=== PATIENT | female | born 1985 | race Caucasian/White ===

== ENCOUNTER → 2017-11-26 | Outpatient (CLI) | payer OTHER ==
--- NOTE | 2017-11-26 18:28 | Diagnostic Imaging Report ---
INDICATION: Indentation in the right breast at 6 o'clock areolar region and questionable discoloration. CORRELATION is made with diagnostic mammogram earlier the same day. FINDINGS: Sonographic interrogation of the area of concern in the 6 o'clock areolar location of the right breast was performed. No sonographic abnormality is seen. No solid or cystic mass is detected. IMPRESSION: BI-RADS category 1. No sonographic abnormality is detected. Clinical followup is recommended. ACR BI-RADS Category 1: Negative. Result letter will be mailed to the patient. Note: At least 10% of breast cancer is not imaged by mammography. Dictated by: Dictated on workstation # [id number]
--- NOTE | 2017-11-30 16:09 | Diagnostic Imaging Report ---
INDICATION: Color change and indentation of the right nipple for two weeks. COMPARISON: No prior mammograms are available for comparison. EXAMINATION: 2D and 3D bilateral diagnostic mammography was performed with CAD. FINDINGS: Both breasts are heterogeneously dense, limiting the sensitivity of mammography. No discrete mass or malignant appearing microcalcifications are seen. The axillae are unremarkable. IMPRESSION: BI-RADS 0 No mammographic features suspicious for malignancy. Even so, sonographic interrogation in the retroareolar right breast is recommended for further evaluation. Dictated by: Dictated on workstation # [id number]
== END ==
LOC: RAD 12:09
PROVIDERS: ATTEND Nurse Practitioner Family
DX: N64.4 Mastodynia (principal)
CPT/HCPCS: 77066

== ENCOUNTER 2018-02-15 14:35 | Emergency (ER) | payer SELFPAY ==
[~2018-02-15] VITALS: Ht 172.7 cm; Wt 63.5 kg
--- OUTSIDE RECORDS SUMMARY | 2018-02-15 14:39 | XMS REPORT | Referral Summary ---
Author Author [facility] Organization [facility] Address Unknown Phone Unavailable Care Team Providers Care Loans Officer Name Role Phone No PCP, Pt States PCP Encounter VC Date(s): 12/15/16 - 12/15/[address] [facility] [address] [place] [address] [place] Discharge Diagnosis: Torticollis Discharge Diagnosis: Strain of right trapezius muscle Discharge Disposition: 01-Home or Self Care Attending Physician: Otto Martinez MD Admitting Physician: Otto Martinez MD Vital Signs Most recent to 1 oldest [Reference Range]: Temperature Oral 36.5 degC [35.8-37.3 degC] (12/15/16 12:21 PM) Peripheral Pulse 80 bpm Rate [60-100 bpm] (12/15/16 3:52 PM) Respiratory Rate 18 br/min [14-20 br/min] (12/15/16 3:52 PM) Blood Pressure 153/104 mmHg [90-140/60-90 mmHg] *HI* (12/15/16 3:52 PM) SpO2 100 % (12/15/16 3:52 PM) Problem List Condition Effective Dates Status Health Status Informant No Chronic Problems Active Tobacco Active patient user(Confirmed) Allergies, Adverse Reactions, Alerts No Known Medication Allergies Medications albuterol CFC free 90 mcg/inh inhalation aerosol 2 puffs, Inhalation, QID, as needed for wheezing, # 1 Each, 0 Refill(s) Start Date: 12/27/15 Status: Ordered cyclobenzaprine 10 mg oral tablet 10 mg 1 tabs, Oral, TID, as needed for spasm, # 10 tabs, 0 Refill(s), supervising bailee Start Date: 03/19/16 Stop Date: 03/19/17 Status: Ordered cyclobenzaprine 10 mg oral tablet 10 mg 1 tabs, Oral, TID, as needed for spasm, X 5 days, # 15 tabs, 0 Refill(s) Start Date: 12/15/16 Stop Date: 12/20/16 Status: Ordered ibuprofen 800 mg oral tablet 800 mg 1 tabs, Oral, q8hr, as needed for pain, X 7 days, # 21 tabs, 0 Refill(s) Start Date: 12/15/16 Stop Date: 12/22/16 Status: Ordered Naprosyn 250 mg oral tablet 250 mg 1 tabs, Oral, BID, as needed for pain, # 20 tabs, 0 Refill(s) Start Date: 06/15/16 Status: Ordered naproxen 375 mg oral tablet 375 mg 1 tabs, Oral, BID, as needed for pain, # 20 tabs, 0 Refill(s) Start Date: 01/14/15 Status: Ordered [place] 5 mg-325 mg oral tablet 1 tabs, Oral, q6hr, as needed for pain, # 12 tabs, 0 Refill(s) Start Date: 03/19/16 Stop Date: 03/19/17 Status: Ordered [place] 5 mg-325 mg oral tablet 1 tabs, Oral, q6hr, as needed for pain, X 5 days, # 12 tabs, 0 Refill(s) Start Date: 12/15/16 Stop Date: 12/20/16 Status: Ordered promethazine 25 mg oral tablet 25 mg 1 tabs, Oral, q6hr, # 12 tabs, 0 Refill(s) Start Date: 06/15/16 Status: Ordered Results No data available for this section Immunizations No data available for this section Procedures No data available for this section Social History Social History Type Response Smoking Status Current every day smoker; Tobacco use per day: 1 Pack entered on: 04/07/16 Assessment and Plan No data available for this section
--- OUTSIDE RECORDS SUMMARY | 2018-02-15 14:39 | XMS REPORT | Referral Summary ---
Author Author [facility] Organization [facility] Address Unknown Phone Unavailable Care Team Providers Care Ways Operator Name Role Phone No PCP, Pt States PCP Encounter VC Date(s): 01/11/17 - 01/13/17 [facility] [address] [place] [address] Discharge Disposition: 01-Home or Self Care Attending Physician: Burke Real MD Admitting Physician: Burke Real MD Vital Signs Most recent to 1 oldest [Reference Range]: Temperature Oral 36.4 degC [35.8-37.3 degC] (01/13/17 12:00 PM) Peripheral Pulse 79 bpm Rate [60-100 bpm] (01/13/17 12:00 PM) Heart Rate Monitored 81 bpm [60-100 bpm] (01/11/17 2:30 PM) Respiratory Rate 15 br/min [14-20 br/min] (01/13/17 12:00 PM) Blood Pressure 133/85 mmHg [90-140/60-90 mmHg] (01/13/17 12:00 PM) Mean Arterial 88 mmHg Pressure, Cuff (01/11/17 2:30 PM) SpO2 100 % (01/13/17 12:00 PM) Remote Telemetry Ongoing (01/13/17 9:32 AM) Problem List Condition Effective Dates Status Health Status Informant Acute Active pain(Confirmed) At risk for Active falls(Confirmed)1 At risk of venous 01/13/17 Active thromboembolus(Confi rmed)2 1This problem was added by Discern Expert. 2Problem added by Discern Expert Allergies, Adverse Reactions, Alerts No Known Medication Allergies Medications cefdinir 300 mg oral capsule 300 mg 1 caps, Oral, q12hr, X 7 days, # 14 caps, 0 Refill(s), Pharmacy: [facility] #[id number], 1 caps Oral q12hr,x7 days Start Date: 01/13/17 Stop Date: 01/20/17 Status: Ordered Results Hematology Most recent to 1 oldest [Reference Range]: WBC [4.8-10.8 11.2 10*3/uL 10*3/uL] *HI* (01/13/17 5:17 AM) RBC [4.00-5.20] 3.63 *LOW* (01/13/17 5:17 AM) Hgb [12.0-16.0 11.1 gm/dL gm/dL] *LOW* (01/13/17 5:17 AM) Hct [37.0-47.0 %] 33.9 % *LOW* (01/13/17 5:17 AM) MCV [82.0-99.0 fL] 93.4 fL (01/13/17 5:17 AM) MCH [27.0-32.0 pg] 30.6 pg (01/13/17 5:17 AM) MCHC [32.0-36.0 32.7 gm/dL gm/dL] (01/13/17 5:17 AM) RDW [11.5-14.5 %] 12.1 % (01/13/17 5:17 AM) Platelet [150-400 270 10*3/uL 10*3/uL] (01/13/17 5:17 AM) MPV [9.4-12.4 fL] 10.2 fL (01/13/17 5:17 AM) Immature 0.2 % Granulocytes (01/13/17 5:17 AM) [0.0-1.0 %] Neutrophils [51-75 64 % %] (01/13/17 5:17 AM) Lymphocytes [20-46 21 % %] (01/13/17 5:17 AM) Monocytes [4-11 %] 12 % *HI* (01/13/17 5:17 AM) Eosinophils [0-4 %] 3 % (01/13/17 5:17 AM) Basophils [0-2 %] 0 % (01/13/17 5:17 AM) Neutro Absolute 7.14 [1.90-7.00] *HI* (01/13/17 5:17 AM) Lymph Absolute 2.33 [0.80-3.30] (01/13/17 5:17 AM) Saline Absolute 1.36 [0.30-1.00] *HI* (01/13/17:17 AM) Eos Absolute 0.34 [0.00-0.50] (01/13/17 5: AM) Baso Absolute 0.03 [0.00-0.20] (01/13/17: AM) Nucleated RBC 0.0 /100 WBC Automated [0 /100 (01/13/17: AM) WBC] Chemistry Most recent to 1 oldest [Reference Range]: Sodium Lvl [136-144 137 mEq/L mEq/L] (01/13/17: AM) Potassium Lvl 4.1 mEq/L [3.6-5.1 mEq/L] (01/13/17 5: AM) Chloride [99-109 104 mEq/L mEq/L] (01/13/17: AM) CO2 [22-32 mEq/L] 27 mEq/L (01/13/17: AM) AGAP [3-20 mEq/L] 6 mEq/L (01/13/17 5:16 AM) BUN [4-20 mg/dL] 5 mg/dL (01/13/17:16 AM) Glucose Lvl [70-100 97 mg/dL mg/dL] (01/13/17:16 AM) Creatinine Lvl 0.66 mg/dL [0.44-1.03 mg/dL] (01/13/17: AM) eGFR [>60 mL/min] >60 mL/min 1 (01/13/17:16 AM) Calcium Lvl 8.6 mg/dL [8.6-10.0 mg/dL] (01/13/17 5:16 AM) Albumin Lvl [3.5-4.8 2.9 gm/dL gm/dL] *LOW* (01/13/17 5:16 AM) Total Protein 5.7 gm/dL [6.1-7.9 gm/dL] *LOW* (01/12/17 6:53 AM) Globulin [1.9-4.3 2.8 gm/dL gm/dL] (01/12/17 6:53 AM) ALT [14-54 U/L] 13 U/L *LOW* (01/12/17 6:53 AM) AST [15-41 U/L] 15 U/L (01/12/17 6:53 AM) Alk Phos [26-104 74 U/L U/L] (01/12/17 6:53 AM) Bili Total [0.2-1.2 0.8 mg/dL 2 mg/dL] (01/12/17 6:53 AM) Magnesium Lvl 1.9 mg/dL [1.8-2.5 mg/dL] (01/13/17 5:16 AM) Phosphorus [2.4-4.7 3.7 mg/dL 3 mg/dL] (01/13/17 5:16 AM) Screen, Negative Urine NPT (01/11/17 11:37 AM) U Beta hCG Ql Negative (01/11/17 11:38 AM) Lactic Acid-POC 0.4 mEq/L [0.5-2.0 mEq/L] *LOW* (01/11/17 1:42 PM) HIV 1 and 2 Abs Negative (01/11/17 11:38 AM) 1Result Comment: Multiply eGFR results by 1.21 for race. 2Result Comment: Naproxen, specifically the metabolite O-desmethylnaproxen, may cause spurious elevation in Total Bilirubin levels. 3Result Comment: High dosages of liposomal Amphotericin B (AmBisome) therapy or other drug preparations that use a liposomal envelope to facilitate drug delivery may cause falsely elevated results for phosphorus. Urinalysis Most recent to 1 oldest [Reference Range]: UA Color Yellow (01/11/17 11:38 AM) UA Appear Cloudy *ABN* (01/11/17 11:38 AM) UA pH [5.0-8.0] 5.0 (01/11/17 11:38 AM) UA Leuk Est Pos 2+ [Negative] *ABN* (01/11/17 11:38 AM) UA Nitrite Positive [Negative] *ABN* (01/11/17 11:38 AM) UA Protein Pos 1+ [Negative] *ABN* (01/11/17 11:38 AM) UA Glucose Negative [Negative] (01/11/17 11:38 AM) UA Ketones Trace [Negative] *ABN* (01/11/17 11:38 AM) UA Urobilinogen Negative [<1.0] (01/11/17 11:38 AM) UA Bili [Negative] Negative (01/11/17 11:38 AM) UA Blood [Negative] Pos 2+ *ABN* (01/11/17 11:38 AM) UA Spec Grav 1.015 [1.003-1.030] (01/11/17 11:38 AM) Type Catheter (01/11/17 11:38 AM) UA WBC [0-4 /HPF] >50 /HPF *ABN* (01/11/17 11:38 AM) UA RBC [0-2] 10-20 *ABN* (01/11/17 11:38 AM) Epithelial Cells 0-2 (01/11/17 11:38 AM) UA Bacteria Moderate *ABN* (01/11/17 11:38 AM) UA Mucous Present (01/11/17 11:38 AM) Microbiology Reports TEST: Blood Culture STATUS: Order in Progress BODY SITE: SOURCE: Blood COLLECTED DATE/TIME: 01/12/17 7:49 PM Blood Culture No growth after 12 hours incubation. Nursing unit/client will be called if growth is detected. - TEST: Blood Culture STATUS: Order in Progress BODY SITE: SOURCE: Blood COLLECTED DATE/TIME: 01/12/17 7:36 PM Blood Culture No growth after 12 hours incubation. Nursing unit/client will be called if growth is detected. - TEST: Respiratory Virus Panel - PCR STATUS: Auth (Verified) BODY SITE: SOURCE: Nasopharyngeal Swab COLLECTED DATE/TIME: 01/11/17 5:35 PM Respiratory Virus Panel - PCR Negative for all strains tested. . Specimen tested for the following FDA approved viral targets: Influenza A, Influenza A subtype H1, Influenza A subtype H3, Influenza A 2009 H1N1, Influenza B, Respiratory Syncytial Virus subtype A, Respiratory Syncytial Virus subtype B, Adenovirus B/E, Adenovirus C, Rhinovirus, Parainfluenza virus 1, Parainfluenza virus 2, Parainfluenza virus 3, and Human Metapneumovirus. . The following viral targets were also tested. Although not FDA approved, these targets have been validated by our laboratory for clinical diagnosis: Parainfluenza virus 4, Coronavirus 229E, Coronavirus NL63, Coronavirus HKU1, and Coronavirus OC43. TEST: Blood Culture STATUS: Order in Progress BODY SITE: SOURCE: Blood COLLECTED DATE/TIME: 01/11/17 1:38 PM Blood Culture No growth after 12 hours incubation. Nursing unit/client will be called if growth is detected. - TEST: Blood Culture1 STATUS: Order in Progress BODY SITE: SOURCE: Blood COLLECTED DATE/TIME: 01/11/17 1:38 PM Blood Culture Escherichia coli by PCR. . Specimen tested for the following targets: Acinetobacter baumannii, Enterobacteriaceae (including specific differentiation of the Enterobacter cloacae complex, Escherichia coli, Klebsiella oxytoca, Klebsiella pneumoniae, Proteus, and Serratia marcescens), Haemophilus influenzae, Neisseria meningitidis (encapsulated), Pseudomonas aeruginosa . Note: Non-encapsulated strains of N. meningitidis are not detected by this PCR test. . Escherichia coli ORGANISM:Escherichia coli TEST: Urine Culture STATUS: Auth (Verified) BODY SITE: SOURCE: Urine COLLECTED DATE/TIME: 01/11/17 11:38 AM Urine Culture - - - - - - - Positive urine culture (even if >100,000 cfu/ml) without presence of symptoms does not require antibiotic treatment unless the patient is or undergoing urinary surgery. Please document as bacteriuria. - Escherichia coli >100,000 cfu/ml ORGANISM:Escherichia coli INTERPRETIVE DATA 1Critical value called, and read-back verified. Called to Carole Roberson 01/12/2017 04:20 by PBOYD Immunizations No data available for this section Procedures No data available for this section Social History Social History Type Response Smoking Status Current every day smoker; Tobacco use per day: 1 Pack entered on: 04/07/16 Assessment and Plan No data available for this section
--- OUTSIDE RECORDS SUMMARY | 2018-02-15 14:39 | XMS REPORT | Referral Summary ---
Author Author [facility] Organization [facility] Address Unknown Phone Unavailable Care Team Providers Care Management Rep Name Role Phone No PCP, Pt States PCP Encounter VC Date(s): 03/19/16 - 03/19/16 [facility] [address] [place] [address] Discharge Diagnosis: Neck muscle strain Discharge Disposition: 01-Home or Self Care Attending Physician: Otto Martinez MD Admitting Physician: Otto Martinez MD Vital Signs Most recent to 1 oldest [Reference Range]: Temperature Oral 36.4 degC [35.8-37.3 degC] (03/19/16 6:27 PM) Peripheral Pulse 99 bpm Rate [60-100 bpm] (03/19/16 8:13 PM) Respiratory Rate 20 br/min [14-20 br/min] (03/19/16 8:13 PM) Blood Pressure 143/89 mmHg [90-140/60-90 mmHg] *HI* (03/19/16 8:13 PM) SpO2 100 % (03/19/16 8:13 PM) Problem List Condition Effective Dates Status [...] Date: 03/19/16 Stop Date: 03/19/17 Status: Ordered naproxen 375 mg oral tablet 375 mg 1 tabs, Oral, BID, as needed for pain, # 20 tabs, 0 Refill(s) Start Date: 01/14/15 Status: Ordered [place] 5 mg-325 mg oral tablet 1 tabs, Oral, q6hr, as needed for pain, # 12 tabs, 0 Refill(s) Start Date: 03/19/16 Stop Date: 03/19/17 Status: Ordered Results No data available for this section Immunizations No data available for this section Procedures No data available for this section Social History Social History Type Response Smoking Status Current every day smoker; Tobacco use per day: Pack Assessment and Plan No data available for this section
--- OUTSIDE RECORDS SUMMARY | 2018-02-15 14:39 | XMS REPORT | Referral Summary ---
Author Author [facility] Organization [facility] Address Unknown Phone Unavailable Care Team Providers Care Retail Link Analyst Name Role Phone No PCP, Pt States PCP Encounter VC Date(s): 06/14/16 - 06/15/16 [facility] [address] [place] [address] [phone] Discharge Diagnosis: LA (lymphadenopathy) Discharge Diagnosis: Body aches Discharge Diagnosis: Acute pharyngitis Discharge Disposition: -Home or Self Care Attending Physician: Otto Martinez MD Admitting Physician: Otto Martinez MD Vital Signs Most recent to 1 oldest [Reference Range]: Temperature Oral 37.3 degC [35.8-37.3 degC] (06/14/16 11:01 PM) Peripheral Pulse 94 bpm Rate [60-100 bpm] (06/14/16 11:01 PM) Respiratory Rate 18 br/min [14-20 br/min] (06/14/16 11:01 PM) Blood Pressure 125/80 mmHg [90-140/60-90 mmHg] (06/14/16 11:01 PM) SpO2 99 % (06/14/16 11:01 PM) Problem List Condition Effective Dates Status Health Status Informant No Chronic Problems Active Tobacco Active patient user(Confirmed) Allergies, Adverse Reactions, Alerts No Known Medication Allergies Medications albuterol CFC free 90 mcg/inh inhalation aerosol 2 puffs, Inhalation, QID, as needed for wheezing, # 1 Each, 0 Refill(s) Start Date: 12/27/15 Status: Ordered amoxicillin 500 mg oral capsule 500 mg 1 caps, Oral, q8hr, X 7 days, # 21 caps, 0 Refill(s) Start Date: 06/15/16 Stop Date: 06/22/16 Status: Ordered cyclobenzaprine 10 mg oral tablet 10 mg 1 tabs, Oral, TID, as needed for spasm, # 10 tabs, 0 Refill(s), supervising bailee Start Date: 03/19/16 Stop Date: 03/19/17 Status: Ordered Naprosyn 250 mg oral tablet 250 mg 1 tabs, Oral, BID, as needed for pain, # 20 tabs, 0 Refill(s) Start Date: 06/15/16 Status: Ordered naproxen 375 mg oral tablet 375 mg 1 tabs, Oral, BID, as needed for pain, # 20 tabs, 0 Refill(s) Start Date: 01/14/15 Status: Ordered [place] 5 mg-325 mg oral tablet 1 tabs, Oral, q6hr, as needed for pain, # 12 tabs, 0 Refill(s) Start Date: 03/19/16 Stop Date: 03/19/17 Status: Ordered promethazine 25 mg oral tablet 25 mg 1 tabs, Oral, q6hr, # 12 tabs, 0 Refill(s) Start Date: 06/15/16 Status: Ordered Results No data available for this section Immunizations No data available for this section Procedures No data available for this section Social History Social History Type Response Smoking Status Current every day smoker; Tobacco use per day: 1 Pack Assessment and Plan No data available for this section
--- OUTSIDE RECORDS SUMMARY | 2018-02-15 14:40 | XMS REPORT | Referral Summary ---
Author Author [facility] Organization [facility] Address Unknown Phone Unavailable Care Team Providers Care Forest Fire Fighter Name Role Phone No PCP, Pt States PCP Encounter VC Date(s): 03/22/16 - 03/22/16 [facility] [address] [facility] [place] [address] Discharge Disposition: Vital Signs No data available for this section Problem List Condition Effective Dates Status Health [...] 0 Refill(s) Start Date: 01/14/15 Status: Ordered [place] 5 mg-325 mg oral tablet 1 tabs, [...]
--- OUTSIDE RECORDS SUMMARY | 2018-02-15 14:40 | XMS REPORT ---
Author Author TRACEY DUENAS [facility] Address [address] [place] [address] Care Team Providers Care Doctorate Of Chiropractic Name Role Phone TRACEY DUENAS Unavailable PROBLEMS No Known Problems ALLERGIES No Known Allergies ENCOUNTERS IMMUNIZATIONS No Known Immunizations SOCIAL HISTORY No smoking Hx information available REASON FOR VISIT PLAN OF CARE VITAL SIGNS MEDICATIONS No Known Medications RESULTS No Results PROCEDURES No Known procedures INSTRUCTIONS MEDICATIONS ADMINISTERED No Known Medications MEDICAL (GENERAL) HISTORY
--- OUTSIDE RECORDS SUMMARY | 2018-02-15 14:40 | XMS REPORT ---
Author Author LENKA TOVAR Organization [facility] Address [address] [place] [address] Phone Unavailable Care Team Providers Care Wire Harness Assembler Name Role Phone LENKA TOVAR Unavailable Unavailable PROBLEMS Unknown Problems ALLERGIES No Known Allergies ENCOUNTERS Encounter Location Date Diagnosis [facility] [id number] [id number] Aug, Dental examination Z01.20 [facility] [id number] [phone] Jul, Encounter for dental exam and cleaning w/o abnormal findings Z01.20 [facility] [address] [id number], [place] [phone] Jul, 2017 Flank pain R10.9 and Acute cystitis with hematuria N30.01 IMMUNIZATIONS No Known Immunizations SOCIAL HISTORY Never Assessed REASON FOR VISIT Adult Outreach [facility] PLAN OF CARE Activity Details Follow Up prn Reason:Patient states she will call for an appointment VITAL SIGNS MEDICATIONS Unknown Medications RESULTS No Results PROCEDURES Procedure Date Ordered Result Body Site Full mouth debridement August 21, 2017 Billing Notes on claim August 21, 2017 Dental Outreach adjust balance August 21, 2017 INSTRUCTIONS MEDICATIONS ADMINISTERED No Known Medications
--- OUTSIDE RECORDS SUMMARY | 2018-02-15 14:40 | XMS REPORT ---
Author Author KEMAR KAMARA [facility] Address Unknown Care Team Providers Care Admitting Counselor Name Role Phone KEMAR KAMARA Unavailable PROBLEMS Unknown Problems ALLERGIES No Known Allergies ENCOUNTERS Encounter Location Date Diagnosis [facility] [id number] [phone] Aug, Dental examination Z01.20 [facility] [id number] [place] [id number] Jul, 2017 Encounter for dental exam and cleaning w/o abnormal findings Z01.20 [facility] [address] [id number] [phone] 08 Jul, 2017 Flank pain R10.9 and Acute cystitis with hematuria N30.01 IMMUNIZATIONS No Known Immunizations SOCIAL HISTORY Never Assessed REASON FOR VISIT chris PLAN OF CARE Activity Details Follow Up prn Reason:#1-te VITAL SIGNS Blood pressure systolic 118 mmHg 2017-08-31 Blood pressure diastolic 72 mmHg 2017-08-31 MEDICATIONS Medication Instructions Dosage Frequency Start Date End Date Duration Status Amoxicillin 500 mg Orally every 8 hrs 1 capsule 8h 07 days Active RESULTS No Results PROCEDURES Procedure Date Ordered Result Body Site LTD ORAL EVALUATION - PROBLEM FOCUS August 31, 2017 INTRAORL-PERIAPICAL 1 FILM [id number] August 31, 2017 PANORAMIC FILM SEE ALSO CODE [id number] August 31, 2017 INSTRUCTIONS MEDICATIONS ADMINISTERED No Known Medications
--- OUTSIDE RECORDS SUMMARY | 2018-02-15 14:40 | XMS REPORT | Referral Summary ---
Author Author [facility] Organization [facility] Address Unknown Phone Unavailable Care Team Providers Care Pastry Mixer Name Role Phone No PCP, Pt States PCP Encounter VC Date(s): 01/14/15 - 01/14/15 [facility] [address] [place] [address] Discharge Diagnosis: Sprain and strain of ribs Discharge Disposition: 01-Home or Self Care Attending Physician: Otto Martinez MD Admitting Physician: Otto Martinez MD Vital Signs Most recent to 1 oldest [Reference Range]: Temperature Oral 36.6 degC [35.8-37.3 degC] (01/14/15 6:48 PM) Peripheral Pulse 107 bpm Rate [60-100 bpm] *HI* (01/14/15 6:48 PM) Respiratory Rate 18 br/min [14-20 br/min] (01/14/15 6:48 PM) Blood Pressure 124/84 mmHg [90-140/60-90 mmHg] (01/14/15 6:48 PM) SpO2 100 % (01/14/15 6:48 PM) Problem List Condition Effective Dates Status Health Status Informant No Chronic Problems Active Tobacco Active patient user(Confirmed) Allergies, Adverse Reactions, Alerts No Known Medication Allergies Medications cyclobenzaprine 10 mg oral tablet 10 mg 1 tabs, Oral, TID, as needed for spasm, # 15 tabs, 0 Refill(s) Start Date: 01/14/15 Stop Date: 01/21/15 Status: Ordered naproxen 375 mg oral tablet 375 mg 1 tabs, Oral, BID, as needed for pain, # 20 tabs, 0 Refill(s) Start Date: 01/14/15 Status: Ordered [place] 5 mg-325 mg oral tablet 1 tabs, Oral, q4hr, as needed for pain, # 12 tabs, 0 Refill(s) Start Date: 01/14/15 Stop Date: 01/17/15 Status: Ordered Results Chemistry Most recent to 1 oldest [Reference Range]: Sodium Venous 139 mEq/L [136-144 mEq/L] (01/14/15 9:03 PM) Potassium Venous 4.3 mEq/L 1 [3.6-5.1 mEq/L] (01/14/15 9:03 PM) Calcium Ionized 1.11 mmol/L Venous [1.19-1.41 *LOW* mmol/L] (01/14/15 9:03 PM) Total CO2 Venous 24 mEq/L [25-29 mEq/L] *LOW* (01/14/15 9:03 PM) HGB Venous NPT 11.9 gm/dL [12.0-16.0 gm/dL] *LOW* (01/14/15 9:03 PM) HCT Venous 35.0 % [37.0-47.0 %] *LOW* (01/14/15 9:03 PM) Glucose Venous 100 mg/dL [70-100 mg/dL] (01/14/15 9:03 PM) BUN Venous [4-20] 11 (01/14/15 9:03 PM) Creatinine Venous 0.5 mg/dL [0.4-1.0 mg/dL] (01/14/15 9:03 PM) Venous CL [99-109 106 mEq/L mEq/L] (01/14/15 9:03 PM) Anion Gap, Alexander 9 [3-20] (01/14/15 9:03 PM) Screen, Negative Urine NPT (01/14/15 7:24 PM) 1Result Comment: This test was performed on a whole blood specimen. The presence or absence of hemolysis cannot be assessed. Hemolysis can falsely elevate potassium levels. Normals are for venous specimens only. Urinalysis Most recent to 1 oldest [Reference Range]: UA Color Lt Yellow (01/14/15 7:00 PM) UA Appear Clear (01/14/15 7:00 PM) UA pH [5.0-8.0] 6.0 (01/14/15 7:00 PM) UA Leuk Est Negative [Negative] (01/14/15 7:00 PM) UA Nitrite Negative [Negative] (01/14/15 7:00 PM) UA Protein Negative [Negative] (01/14/15 7:00 PM) UA Glucose Negative [Negative] (01/14/15 7:00 PM) UA Ketones Negative [Negative] (01/14/15 7:00 PM) UA Urobilinogen Negative [<1.0] (01/14/15 7:00 PM) UA Bili [Negative] Negative (01/14/15 7:00 PM) UA Blood [Negative] Negative (01/14/15 7:00 PM) UA Spec Grav 1.014 [1.003-1.030] (01/14/15 7:00 PM) Type Clean Catch (01/14/15 7:00 PM) Immunizations No data available for this section Procedures No data available for this section Social History Social History Type Response Smoking Status Current every day smoker; Tobacco use per day: Pack Assessment and Plan No data available for this section
--- OUTSIDE RECORDS SUMMARY | 2018-02-15 14:40 | XMS REPORT ---
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 Name Role Phone MARIANO PEÑA Unavailable PROBLEMS No Known Problems ALLERGIES No Known Allergies ENCOUNTERS Encounter Location Date Diagnosis [facility] [place] [address] [phone] 18 Oct, 2017 Breast tenderness in female N64.4 [facility] [place] [address] [address] 11 Oct, 2017 Acute bronchitis, unspecified organism J20.9 [facility] [address] [id number] Aug, Dental examination Z01.20 [facility] [address] [id number] Jul, Encounter for dental exam and cleaning w/o abnormal findings Z01.20 [facility] [id number] [place] [phone] Jul, Flank pain R10.9 and Acute cystitis with hematuria N30.01 IMMUNIZATIONS No Known Immunizations SOCIAL HISTORY Never Assessed REASON FOR VISIT Congestion-twooden,RMA, coughing up phlegm started today,sore throat, body start aching last night PLAN OF CARE Activity Details Follow Up prn Reason: VITAL SIGNS Weight 183.4 lbs 2017-11-06 Temperature 97.1 degrees Fahrenheit 2017-11-06 Heart Rate 87 bpm 2017-11-06 Respiratory Rate 18 2017-11-06 Blood pressure systolic 104 mmHg 2017-11-06 Blood pressure diastolic 78 mmHg 2017-11-06 MEDICATIONS Medication Instructions Dosage Frequency Start Date End Date Duration Status PredniSONE 20 mg Orally Once a day 2 tablets 24h Oct, 5 days Active ProAir HFA 108 (90 Base) MCG/ACT Inhalation every 6 hrs 2 puffs as needed 6h Oct, 30 days Active RESULTS No Results PROCEDURES No Known procedures INSTRUCTIONS MEDICATIONS ADMINISTERED No Known Medications MEDICAL (GENERAL) HISTORY Type Description Date Surgical History 2x 2013 Hospitalization History surgeries
--- OUTSIDE RECORDS SUMMARY | 2018-02-15 14:40 | XMS REPORT | Referral Summary ---
Author Author [facility] Organization [facility]] Address Unknown Phone Unavailable Care Team Providers Care Automated Weaver Name Role Phone No PCP, Pt States PCP Encounter VC Date(s): 03/10/17 - 03/10/17 [facility]] [address] [place] [address] [phone] Discharge Diagnosis: Fall Discharge Diagnosis: Right shoulder pain Discharge Disposition: 01-Home or Self Care Attending Physician: Otto Martinez MD Admitting Physician: Otto Martinez MD Vital Signs Most recent to 1 oldest [Reference Range]: Temperature Oral 36.5 degC [35.8-37.3 degC] (03/10/17 7:21 AM) Peripheral Pulse 89 bpm Rate [60-100 bpm] (03/10/17 9:00 AM) Respiratory Rate 16 br/min [14-20 br/min] (03/10/17 9:00 AM) Blood Pressure 127/87 mmHg [90-140/60-90 mmHg] (03/10/17 9:00 AM) SpO2 99 % (03/10/17 9:00 AM) Problem List Condition Effective Dates Status [...] # 15 tabs, 0 Refill(s) Start Date: 03/10/17 Stop Date: 03/15/17 Status: Ordered Naprosyn 500 mg oral tablet 500 mg 1 tabs, Oral, BID, as needed for pain, X 5 days, # 10 tabs, 0 Refill(s) Start Date: 03/10/17 Stop Date: 03/15/17 Status: Ordered Ultram 50 mg oral tablet 50 mg 1 tabs, Oral, q12hr, as needed for pain, X 5 days, # 10 tabs, 0 Refill(s) Start Date: 03/10/17 Stop Date: 03/15/17 Status: Ordered Results No data available for this section Immunizations No data available for this section Procedures No data available for this section Social History Social History Type Response Smoking Status Current every day smoker; Tobacco use per day: 1 Pack entered on: 04/07/16 Assessment and Plan No data available for this section
--- OUTSIDE RECORDS SUMMARY | 2018-02-15 14:40 | XMS REPORT ---
Author Author CATHI BEAR Organization [facility] Address [address] [place] [address] Care Team Providers Care Camouflage Specialist Name Role Phone CATHI BEAR Unavailable PROBLEMS No Known Problems ALLERGIES No Known Allergies ENCOUNTERS Encounter Location Date Diagnosis [facility] [address] [address] Nov, Possible exposure to STD Z20.2 [facility] [address] [address] 18 Oct, 2017 Breast tenderness in female N64.4 [facility] [address] [address] 11 Oct, 2017 Acute bronchitis, unspecified organism J20.9 [facility] [address] [id number] Aug, Dental examination Z01.20 [facility] [address] [id number] Jul, Encounter for dental exam and cleaning w/o abnormal findings Z01.20 [facility] [id number] [place] [phone] Jul, Flank pain R10.9 and Acute cystitis with hematuria N30.01 IMMUNIZATIONS No Known Immunizations SOCIAL HISTORY Never Assessed REASON FOR VISIT STD check- unprotected intercourse a few weeks ago and heard that he may have something JStrasserRN PLAN OF CARE Activity Details Follow Up prn Reason: Pending Test GC/CHLAM PROBE (STATE) Pending Test HEP C ANTIBODY (STATE) Pending Test SYPHILIS (STATE) Pending Test TRICHOMONAS (IN HOUSE) Pending Test HIV (STATE) Pending Test HEP B SURFACE ANTIGEN (STATE) Pending Test BACTERIAL VAGINOSIS (IN HOUSE) VITAL SIGNS Height 68 in 2017-12-19 Weight 187.4 lbs 2017-12-19 Temperature 98.3 degrees Fahrenheit 2017-12-19 Heart Rate 64 bpm 2017-12-19 Respiratory Rate 20 2017-12-19 BMI 28.49 kg/m2 2017-12-19 Blood pressure systolic 126 mmHg 2017-12-19 Blood pressure diastolic 90 mmHg 2017-12-19 MEDICATIONS No Known Medications RESULTS No Results PROCEDURES Procedure Date Ordered Result Body Site No Charge Dec 19, 2017 Bacterial Vaginosis In House Dec 19, 2017 CULTURE, BACTERIA, OTHER Dec 19, 2017 TRICHOMONAS ASSAY W/OPTIC Dec 19, 2017 VENIPUNCT, ROUTINE* Dec 19, 2017 INSTRUCTIONS MEDICATIONS ADMINISTERED No Known Medications MEDICAL (GENERAL) HISTORY Type Description Date Surgical History 2x 2012 Hospitalization History surgeries
--- OUTSIDE RECORDS SUMMARY | 2018-02-15 14:40 | XMS REPORT | Referral Summary ---
Author Author [facility] Organization [facility] Address Unknown Phone Unavailable Care Team Providers Care Irrigation Supervisor Name Role Phone No PCP, Pt States PCP Encounter VC Date(s): 12/27/15 - 12/27/15 [facility] [address], [place] [address] Discharge Diagnosis: Bronchitis Discharge Disposition: 01-Home or Self Care Attending Physician: Lashay Rosario MD Admitting Physician: Lashay Rosario MD Vital Signs Most recent to 1 oldest [Reference Range]: Temperature Oral 37.7 degC [35.8-37.3 degC] *HI* (12/27/15 12:01 PM) Peripheral Pulse 101 bpm Rate [60-100 bpm] *HI* (12/27/15 2:00 PM) Respiratory Rate 16 br/min [14-20 br/min] (12/27/15 2:00 PM) Blood Pressure 112/67 mmHg [90-140/60-90 mmHg] (12/27/15 2:00 PM) Pulse Rate [60-100 100 bpm bpm] (12/27/15 12:28 PM) SpO2 98 % (12/27/15 2:00 PM) Problem List Condition Effective Dates Status Health Status Informant No Chronic Problems Active Tobacco Active patient user(Confirmed) Allergies, Adverse Reactions, Alerts No Known Medication Allergies Medications albuterol CFC free 90 mcg/inh inhalation aerosol 2 puffs, Inhalation, QID, as needed for wheezing, # 1 Each, 0 Refill(s) Start Date: 12/27/15 Status: Ordered azithromycin 250 mg oral tablet 250 mg 1 tabs, Oral, Daily, 2 tabs PO day 1, 1 tab/day after that, X 5 days, # 6 tabs, 0 Refill(s) Start Date: 12/27/15 Stop Date: 01/01/16 Status: Ordered naproxen 375 mg oral tablet 375 mg 1 tabs, Oral, BID, as needed for pain, # 20 tabs, 0 Refill(s) Start Date: 01/14/15 Status: Ordered Results No data available for this section Immunizations No data available for this section Procedures No data available for this section Social History Social History Type Response Smoking Status Current every day smoker; Tobacco use per day: Pack Assessment and Plan No data available for this section
--- OUTSIDE RECORDS SUMMARY | 2018-02-15 14:40 | XMS REPORT ---
Author Author NELLI WILLOUGHBY [facility] Address [address] [place] [address] Care Team Providers Care Town Marshal Name Role Phone NELLI WILLOUGHBY Unavailable PROBLEMS Unknown Problems ALLERGIES No Known Allergies ENCOUNTERS Encounter Location Date Diagnosis [facility] [address] [facility] [id number] [id number] Aug, Dental examination Z01.20 [facility] [address] [id number] [id number] Jul, 2017 Encounter for dental exam and cleaning w/o abnormal findings Z01.20 [facility] [address] [id number] [address] Jul, 2017 Flank pain R10.9 and Acute cystitis with hematuria N30.01 IMMUNIZATIONS No Known Immunizations SOCIAL HISTORY Never Assessed REASON FOR VISIT kidney pain---BEVERLEY lewis, Patient states that she was diagnosed with Ecoli in Dec 2016, ended up in blood stream and started making her back hurt PLAN OF CARE Activity Details Follow Up prn Reason: VITAL SIGNS Weight 167.4 lbs 2017-08-03 Temperature 98.1 degrees Fahrenheit 2017-08-03 Heart Rate 84 bpm 2017-08-03 Respiratory Rate 22 2017-08-03 Blood pressure systolic 110 mmHg 2017-08-03 Blood pressure diastolic 74 mmHg 2017-08-03 MEDICATIONS Medication Instructions Dosage Frequency Start Date End Date Duration Status Macrobid 100 MG Orally every 12 hrs 1 capsule with food 12h Jul, Jul, 7 day(s) Active RESULTS No Results PROCEDURES Procedure Date Ordered Result Body Site URINALYSIS, AUTO, W/O SCOPE August 03, 2017 URINE CULTURE/COLONY COUNT August 03, 2017 INSTRUCTIONS MEDICATIONS ADMINISTERED No Known Medications
--- OUTSIDE RECORDS SUMMARY | 2018-02-15 14:40 | XMS REPORT | Referral Summary ---
Author Author [facility] Organization [facility] Address Unknown Phone Unavailable Care Team Providers Care Travel Services Professional Name Role Phone No PCP, Pt States PCP Encounter VC Date(s): 04/07/16 - 04/07/16 [facility] [address] [place] [address] [place] Discharge Diagnosis: Abscess Discharge Diagnosis: Acute sinusitis Discharge Diagnosis: Acute headache Discharge Disposition: 01-Home or Self Care Attending Physician: Otto Martinez MD Admitting Physician: Otto Martinez MD Vital Signs Most recent to 1 oldest [Reference Range]: Temperature Oral 36.8 degC [35.8-37.3 degC] (04/07/16 10:13 AM) Peripheral Pulse 102 bpm Rate [60-100 bpm] *HI* (04/07/16 10:43 AM) Respiratory Rate 16 br/min [14-20 br/min] (04/07/16 10:43 AM) Blood Pressure 158/102 mmHg [90-140/60-90 mmHg] *HI* (04/07/16 10:43 AM) SpO2 97 % (04/07/16 10:43 AM) Problem List Condition Effective Dates Status Health Status Informant No Chronic Problems Active Tobacco Active patient user(Confirmed) Allergies, Adverse Reactions, Alerts No Known Medication Allergies Medications albuterol CFC free 90 mcg/inh inhalation aerosol 2 puffs, Inhalation, QID, as needed for wheezing, # 1 Each, 0 Refill(s) Start Date: 12/27/15 Status: Ordered Bactrim DS 800 mg-160 mg oral tablet 1 tabs, Oral, BID, X 7 days, # 14 tabs, 0 Refill(s) Start Date: 04/07/16 Stop Date: 04/14/16 Status: Ordered cyclobenzaprine 10 mg oral tablet 10 mg 1 tabs, Oral, TID, as needed for spasm, # 10 tabs, 0 Refill(s), supervising bailee Start Date: 03/19/16 Stop Date: 03/19/17 Status: Ordered Keflex 500 mg oral capsule 500 mg 1 caps, Oral, QID, X 7 days, # 28 caps, 0 Refill(s), Indication: angel raya md Start Date: 04/07/16 Stop Date: 04/14/16 Status: Ordered naproxen 375 mg oral tablet 375 mg 1 tabs, Oral, BID, as needed for pain, # 20 tabs, 0 Refill(s) Start Date: 01/14/15 Status: Ordered [place] 5 mg-325 mg oral tablet 1 tabs, Oral, q6hr, as needed for pain, angel raya md, X 3 days, # 12 tabs, 0 Refill(s) Start Date: 04/07/16 Stop Date: 04/10/16 Status: Ordered [place] 5 mg-325 mg oral tablet 1 tabs, [...]
--- OUTSIDE RECORDS SUMMARY | 2018-02-15 14:41 | XMS REPORT | Continuity of Care Document ---
Author Author [facility] Organization [facility] Address Unknown Phone Unavailable Allergies Active Description Code Type Severity Reaction Onset Reported/Identified Relationship to Patient Clinical Status Yes No Known Drug Intolerances No Known Drug Intolerances Drug Allergy Unknown NONE 01/03/2015 Yes No Known Medication Allergies NKMA N/A N/A 01/14/2015 Yes No Known Allergies No Known Allergies Drug Allergy Unknown N/A 2016 Medications Medication Packaging Start Date Stop Date Route Dosage Sig ondansetron(Zofran) 2 mL 201401/14/2015 IV Push 4 mg 4 mg=2 mL, IV Push, Once ketorolac(Toradol) 1 mL 01/14/2015 01/14/2015 IV Push 30 mg 30 mg=1 mL, IV Push, Once HYDROcodone-acetaminophen(Lyons 7.5 mg-325 mg oral tablet) 1 tabs 01/14/2015 01/14/2015 Oral 1 tabs, Oral, Once HYDROcodone-acetaminophen(Lyons 5 mg-325 mg oral tablet) 1 tabs 01/14/2015 01/17/2015 Oral 1 tabs, Oral, q4hr, PRN: as needed for pain , 12 tabs, 0 Refill(s) cyclobenzaprine(cyclobenzaprine 10 mg oral tablet) 1 tabs 01/14/2015 01/21/2015 Oral 10 mg 10 mg=1 tabs, Oral, TID, PRN: as needed for spasm, 15 tabs, 0 Refill(s) naproxen(naproxen 375 mg oral tablet) 1 tabs 01/14/2015 Oral 375 mg 375 mg=1 tabs, Oral, BID, PRN: as needed for pain, 20 tabs, 0 Refill(s) ibuprofen(ibuprofen) 1 tabs 201512/27/2015 Oral 800 mg 800 mg=1 tabs, Oral, Once ipratropium(ipratropium) 2.5 mL 12/27/2015 NEB 0.5 mg 0.5 mg=2.5 mL, NEB, Once albuterol(albuterol 5 mg/mL (0.5%) inhalation solution) 1.5 mL 12/27/2015 12/27/2015 NEB 7.5 mg 7.5 mg=1.5 mL, NEB, Once albuterol(albuterol CFC free 90 mcg/inh inhalation aerosol) 2 puffs 12/27/2015 Inhalation 2 puffs, Inhalation, QID, PRN: as needed for wheezing, 1 Each, 0 Refill(s) azithromycin(azithromycin 250 mg oral tablet) 1 tabs 12/27/2015 01/01/2016 Oral 250 mg 250 mg=1 tabs, Oral, Daily, for 5 days, 2 tabs PO day 1, 1 tab/day after that, 6 tabs, 0 Refill(s) cyclobenzaprine(cyclobenzaprine) 1 tabs 03/19/2016 03/19/2016 Oral 10 mg 10 mg=1 tabs, Oral, Once oxyCODONE-acetaminophen(Percocet 5/325 oral tablet) 1 tabs 03/19/2016 03/19/2016 Oral 1 tabs, Oral, Once HYDROcodone-acetaminophen(Lyons 5 mg-325 mg oral tablet) 1 tabs 03/19/2016 03/19/2017 Oral 1 tabs, Oral, q6hr, PRN: as needed for pain , 12 tabs, 0 Refill(s) cyclobenzaprine(cyclobenzaprine 10 mg oral tablet) 1 tabs 03/19/2016 03/19/2017 Oral 10 mg 10 mg=1 tabs, Oral, TID, PRN: as needed for spasm, 10 tabs, 0 Refill(s) HYDROcodone-acetaminophen(Lyons 5 mg-325 mg oral tablet) 1 tabs 04/07/2016 04/10/2016 Oral 1 tabs, Oral, q6hr, for 3 days, angel raya md , PRN: as needed for pain, 12 tabs, 0 Refill(s) sulfamethoxazole-trimethoprim(Bactrim DS 800 mg-160 mg oral tablet ) 1 tabs 04/07/2016 04/14/2016 Oral 1 tabs, Oral, BID, for 7 days, 14 tabs, 0 Refill(s) cephalexin(Keflex 500 mg oral capsule) 1 caps 04/07/2016 04/14/2016 Oral 500 mg 500 mg=1 caps, Oral, QID, for 7 days, 28 caps, 0 Refill(s ) amoxicillin(amoxicillin) 1 caps 06/15/2016 Oral 500 mg 500 mg=1 caps, Oral, Once ibuprofen(ibuprofen) 1 tabs 201606/15/2016 Oral 600 mg 600 mg=1 tabs, Oral, Once promethazine(promethazine 25 mg oral tablet) 1 tabs 06/15/2016 Oral 25 mg 25 mg=1 tabs, Oral, q6hr, 12 tabs, 0 Refill(s) amoxicillin(amoxicillin 500 mg oral capsule) 1 caps 06/15/2016 06/22/2016 Oral 500 mg 500 mg=1 caps, Oral, q8hr, for 7 days, 21 caps, 0 Refill(s) naproxen(Naprosyn 250 mg oral tablet) 1 tabs 06/15/2016 Oral 250 mg 250 mg=1 tabs, Oral, BID, PRN: as needed for pain, 20 tabs, 0 Refill(s) morphine(morphine 4 mg/mL syringe 1 mL) 1 mL 12/15/2016 12/15/2016 IntraMuscular 4 mg 4 mg=1 mL, IntraMuscular, Once cyclobenzaprine(cyclobenzaprine 10 mg oral tablet) 1 tabs 12/15/2016 12/20/2016 Oral 10 mg 10 mg=1 tabs, Oral, TID, for 5 days, PRN: as needed for spasm, 15 tabs, 0 Refill(s) HYDROcodone-acetaminophen(Lyons 5 mg-325 mg oral tablet) 1 tabs 12/15/2016 12/20/2016 Oral 1 tabs, Oral, q6hr, for 5 days, PRN: as needed for pain, 12 tabs, 0 Refill(s) ibuprofen(ibuprofen 800 mg oral tablet) 1 tabs 12/15/2016 12/22/2016 Oral 800 mg 800 mg=1 tabs, Oral, q8hr, for 7 days, PRN: as needed for pain, 21 tabs, 0 Refill(s) ondansetron(Zofran) 2 mL 201601/11/2017 IV Push 4 mg 4 mg=2 mL, IV Push, q30min, PRN: Nausea or Vomiting ketorolac(Toradol) 1 mL 01/11/2017 01/11/2017 IV Push 30 mg 30 mg=1 mL, IV Push, Once cefTRIAXone(Rocephin) 10 mL 201601/11/2017 IV Push 1 g 1 g=10 mL, IV Push, Once acetaminophen(Tylenol Extra Strength 500 mg oral tablet) 2 tabs 01/11/2017 01/13/2017 Oral 1,000 mg 1,000 mg=2 tabs, Oral, qAM, PRN: as needed for fever, 120 tabs, 0 Refill(s) metoclopramide(Reglan) 2 mL 201601/13/2017 IV Push 10 mg 10 mg=2 mL, IV Push, q6hr, PRN: Nausea docusate(Colace) 1 caps 01/11/2017 01/13/2017 Oral 100 mg 100 mg=1 caps, Oral, BID ondansetron(Zofran) 2 mL 201601/13/2017 IV Push 4 mg 4 mg=2 mL, IV Push, q6hr, PRN: Nausea glucagon(glucagon) 1 mL 01/11/2017 01/13/2017 IntraMuscular 1 mg 1 mg=1 mL, IntraMuscular, As Indicated, PRN: Hypoglycemia/Low Blood Sugar Al hydroxide/Mg hydroxide/simethicone(Maalox Advanced Maximum Strength oral suspension) 30 mL 01/11/2017 01/13/2017 Oral 30 mL, Oral, q6hr, PRN: GERD/Heartburn ketorolac(Toradol) 1 mL 01/11/2017 01/13/2017 IV Push 30 mg 30 mg=1 mL, IV Push, q6hr, PRN: Pain Mild (1-3) polyethylene glycol 3350(MiraLax) 1 packets 01/11/2017 01/13/2017 Oral 17 g 17 g=1 packets, Oral, Daily, PRN: Constipation glucose(glucose) 01/11/2017 01/13/2017 Oral 15 g 15 g, Oral, q1hr, PRN: Hypoglycemia/Low Blood Sugar calcium carbonate(Tums) 1 tabs 01/13/2017 Oral 500 mg 500 mg=1 tabs, Oral, q4hr, PRN: GERD/Heartburn nicotine(Habitrol 21 mg/24 hr transdermal film, extended release) 1 patches 01/11/2017 01/13/2017 TransDermal 1 patches, TransDermal, Daily diphenhydrAMINE(Benadryl) 1 tabs 01/13/2017 Oral 25 mg 25 mg=1 tabs, Oral, q6hr, PRN: Pruritus/Itching Dextrose 50% in Water(Dextrose 50% in Water Injection) 25 mL 01/11/2017 01/13/2017 IV Push 12.5 g 12.5 g=25 mL, IV Push, q15min, PRN: Hypoglycemia/Low Blood Sugar Dextrose 10% in Water(Dextrose 10% in Water 250 mL) 250 mL 01/11/2017 01/13/2017 IV 50 mL/hr, IV acetaminophen(acetaminophen) 2 tabs 01/11/2017 01/13/2017 Oral 650 mg 650 mg=2 tabs, Oral, q4hr, PRN: Other (See Comment) Lactated Ringers Injection(Lactated Ringers Injection 1,000 mL) 1,000 mL 01/11/2017 01/12/2017 IV 150 mL/hr, IV HYDROcodone-acetaminophen(Lyons 7.5 mg-325 mg oral tablet) 1 tabs 01/11/2017 01/13/2017 Oral 1 tabs, Oral, q4hr, PRN: Pain Moderate (4-6) cefdinir(cefdinir 300 mg oral capsule) 1 caps 01/13/2017 01/13/2017 Oral 300 mg 300 mg=1 caps, Oral, q12hr, for 7 days, 14 caps, 0 Refill (s) cefdinir(cefdinir 300 mg oral capsule) 1 caps 01/13/2017 01/20/2017 Oral 300 mg 300 mg=1 caps, Oral, q12hr, for 7 days, 14 caps, 0 Refill (s) naproxen(Naprosyn) 2 tabs 201703/10/2017 Oral 500 mg 500 mg=2 tabs, Oral, Once traMADol(Ultram 50 mg oral tablet) 1 tabs 03/10/2017 03/15/2017 Oral 50 mg 50 mg=1 tabs, Oral, q12hr, for 5 days, PRN: as needed for pain , 10 tabs, 0 Refill(s) cyclobenzaprine(cyclobenzaprine 10 mg oral tablet) 1 tabs 03/10/2017 03/15/2017 Oral 10 mg 10 mg=1 tabs, Oral, TID, for 5 days, PRN: as needed for spasm, 15 tabs, 0 Refill(s) naproxen(Naprosyn 500 mg oral tablet) 1 tabs 03/10/2017 03/15/2017 Oral 500 mg 500 mg=1 tabs, Oral, BID, for 5 days, PRN: as needed for pain, 10 tabs, 0 Refill(s) Problems Date Dx Coded Attending Type Code Diagnosis Diagnosed By 12/23/2012 Edgardo Moreno MD 654.21 PREV DELIVRY W/ OR W/O MENT ANTEPART COND 12/23/2012 Edgardo Moreno MD 654.23 PREV DELIVERY, ANTEPARTUM COND OR COMPLIC 12/23/2012 Edgardo Moreno MD V27.0 DELIVER-SINGLE LIVEBORN 01/23/2015 Otto Martinez MD Reason R10.9 Unspecified abdominal pain 01/23/2015 Otto Martinez MD Final S23.41XA Sprain of ribs, initial encounter 01/23/2015 Otto Martinez MD Final X58.XXXA Exposure to other specified factors, initial encounter 12/28/2015 Lashay Rosario Final F17.200 Nicotine dependence, unspecified, uncomplicated 12/28/2015 Lashay Rosario Final J40 Bronchitis, not specified as acute or chronic 12/28/2015 Lashay Rosario Reason R05 Cough 03/21/2016 Martinez Howard Final F17.210 Nicotine dependence, cigarettes, uncomplicated 03/21/2016 Martinez Howard Reason M54.2 Cervicalgia 03/21/2016 Martinez Howard Final S16.1XXA Strain of muscle, fascia and tendon at neck level, initial encounter 03/21/2016 Martinez Howard Final X50.9XXA Other and unspecified overexertion or strenuous movements or postures, init 03/21/2016 Martinez Howard Final Y92.[address] in unspecified non-institutional (private) residence as t 03/21/2016 Martinez Howard Final Y93.89 Activity, other specified 03/24/2016 Martinez Howard Final M25.512 Pain in left shoulder 03/24/2016 Martinez Howard Reason M54.2 Cervicalgia 04/10/2016 Martinez,, Otto Final F17.210 Nicotine dependence, cigarettes, uncomplicated 04/10/2016 Martinez,, Otto Final J01.90 Acute sinusitis, unspecified 04/10/2016 Martinez,, Otto Final L02.01 Cutaneous abscess of face 04/10/2016 Martinez,, Otto Reason R51 Headache 06/16/2016 Martinez,, Otto Final F17.210 Nicotine dependence, cigarettes, uncomplicated 06/16/2016 Martinez,, Otto Final J02.9 Acute pharyngitis, unspecified 06/16/2016 Martinez,, Otto Reason R07.0 Pain in throat 06/16/2016 Martinez,, Otto Final R52 Pain, unspecified 06/16/2016 Martinez,, Otto Final R59.1 Generalized enlarged lymph nodes 12/19/2016 Angel,, Otto Final F17.210 Nicotine dependence, cigarettes, uncomplicated 12/19/2016 Angel,, Otto Final M43.6 Torticollis 12/19/2016 Martinez,, Otto Reason M54.2 Cervicalgia 12/19/2016 Martinez,, Otto Final S46.811A Strain of other muscles, fascia and tendons at shoulder and upper arm level 12/19/2016 Angel,Otto Final X50.1XXA Overexertion from prolonged static or awkward postures, initial encounter 01/11/2017 Berhaneunda,Burke Admitting J06.9 01/16/2017 Ndunda,Burke Admitting A41.51 Sepsis due to Escherichia coli [E. coli] 01/16/2017 Ndunda,Burke Final E87.1 Hypo-osmolality and hyponatremia 01/16/2017 Ndunda,, Burke Final F17.210 Nicotine dependence, cigarettes, uncomplicated 01/16/2017 Ndunda,, Burke Final J06.9 Acute upper respiratory infection, unspecified 01/16/2017 Ndunda,, Burke Final N39.0 Urinary tract infection, site not specified 01/16/2017 Berhaneunda,Burke Final A41.51 Sepsis due to Escherichia coli [E. coli] 03/12/2017 Angel,Otto Final F17.210 Nicotine dependence, cigarettes, uncomplicated 03/12/2017 Angel,Otto Reason M25.511 Pain in right shoulder 03/12/2017 Angel,Otto Final W00.0XXA Fall on same level due to ice and snow, initial encounter 03/12/2017 Martinez Howard Final W22.8XXA Striking against or struck by other objects, initial encounter 03/12/2017 Martinez Howard Final Z86.718 Personal history of other venous thrombosis and embolism 12/07/2017 TRACEY DUENAS Himanshu [employer]S INSPECTOR Ot N64.4 MASTODYNIA 12/09/2017 HENRIQUE TRACEY D MATERIALS INSPECTOR Ot N64.4 MASTODYNIA Procedures Code Description Performed By Performed On 74.1 LOW CERVICAL 12/23/2012 Results Test Result Range CBC - 12/23/12 15:29 MEAN CELL HGB 30.2 pg 27.0-33.0 MEAN CELL HGB CONCENTRATION 32.5 g/dL 32.0-37.0 MEAN CELL VOLUME 92.8 fl 80.0-100.0 RED BLOOD CELL 3.91 m/cumm 4.00-6.00 RED CELL DISTRIBUTION WIDTH 13.3 % 11.0-15.6 WHITE BLOOD CELL 15.8 k/cumm 5.0-10.0 HEMOGLOBIN 11.8 gm/dL 12.0-16.0 HEMATOCRIT 36.3 % 37.0-47.0 PLATELET COUNT 260 k/cumm 150-400 METABOLIC PANEL, COMPREHN - 12/23/12 15:29 POTASSIUM 3.5 mmol/L 3.5-5.3 EST GFR (MDRD) > 60 mL/min > 59 ANION GAP 11 mmol/L 5-15 EST CrCl (CG) > 60 mL/min > 59 GLUCOSE 71 mg/dL 70-99 CALCIUM 8.7 mg/dL 8.5-10.1 BLOOD UREA NITROGEN 5 mg/dL 7-20 CREATININE 0.5 mg/dL 0.6-1.0 SODIUM 140 mmol/L 135-148 CHLORIDE 108 mmol/L 98-110 AST/SGOT 14 Units/L 10-37 ALT/SGPT 12 Units/L < 66 CARBON DIOXIDE 21 mmol/L 21-32 TOTAL PROTEIN 6.8 gm/dL 6.4-8.2 ALBUMIN 2.9 gm/dL 3.4-5.0 BILI TOTAL 0.3 mg/dL 0.0-1.0 ALKALINE PHOSPHATASE TOTAL 302 Units/L 50-136 URIC ACID - 12/23/12 15:29 URIC ACID 2.8 mg/dL 2.6-6.0 LACTATE DEHYDROGENASE (LDH/LD) - 12/23/12 15:29 LACTATE DEHYDROGENASE (LDH/LD) 220 Units/L 81-234 HEMOGLOBIN - 12/23/12 22:03 MEAN CELL VOLUME 91.4 fl 80.0-100.0 HEMOGLOBIN 11.2 gm/dL 12.0-16.0 HEMOGLOBIN - 12/24/12 06:35 MEAN CELL VOLUME 92.4 fl 80.0-100.0 HEMOGLOBIN 11.1 gm/dL 12.0-16.0 URINE CULTURE - 12/05/14 00:00 Microbiology CBC W/DIFF - 01/03/15 14:27 EOSINOPHIL # 0.1 k/cumm 0.1-0.5 EOSINOPHIL % 1 % 2-4 GRANULOCYTE # 11.3 k/cumm 2.0-9.0 GRANULOCYTE % 76 % 50-75 LYMPHOCYTE # 2.5 k/cumm 1.0-4.0 LYMPHOCYTE % 17 % 20-30 MEAN CELL HGB 31.1 pg 27.0-33.0 MEAN CELL HGB CONCENTRATION 33.8 g/dL 32.0-37.0 MEAN CELL VOLUME 92.1 fl 80.0-100.0 MONOCYTE # 1.0 k/cumm 0.1-1.0 MONOCYTE % 6 % 4-6 RED BLOOD CELL 4.28 m/cumm 4.00-6.00 RED CELL DISTRIBUTION WIDTH 12.2 % 11.0-15.6 WHITE BLOOD CELL 14.9 k/cumm 5.0-10.0 HEMOGLOBIN 13.3 gm/dL 12.0-16.0 HEMATOCRIT 39.4 % 37.0-47.0 PLATELET COUNT 243 k/cumm 150-450 METABOLIC PANEL, COMPREHN - 01/03/15 14:27 POTASSIUM 4.1 mmol/L 3.5-5.3 EST GFR (MDRD) > 60 mL/min > 59 ANION GAP 8 mmol/L 5-15 EST CrCl (CG) > 60 mL/min > 59 GLUCOSE 84 mg/dL 70-99 CALCIUM 9.3 mg/dL 8.5-10.1 BLOOD UREA NITROGEN 9 mg/dL 7-20 CREATININE 0.9 mg/dL 0.6-1.0 SODIUM 140 mmol/L 135-148 CHLORIDE 101 mmol/L 98-110 AST/SGOT 11 Units/L 10-37 ALT/SGPT 16 Units/L < 66 CARBON DIOXIDE 31 mmol/L 21-32 TOTAL PROTEIN 7.0 gm/dL 6.4-8.2 ALBUMIN 3.6 gm/dL 3.4-5.0 BILI TOTAL 0.8 mg/dL 0.0-1.0 ALKALINE PHOSPHATASE TOTAL 60 IU/L 45-117 LIPASE - 01/03/15 14:27 LIPASE 111 Units/L 73-393 URINALYSIS, ROUTINE - 01/03/15 14:45 UA LEUKOCYTE ESTERASE DIPSTICK 1+ NEGATIVE UA NITRITE DIPSTICK NEGATIVE NEGATIVE UA PROTEIN DIPSTICK 1+ NEGATIVE UA GLUCOSE DIPSTICK NEGATIVE NEGATIVE UA KETONE DIPSTICK NEGATIVE NEGATIVE UA UROBILINOGEN DIPSTICK NORMAL NORMAL UA BILIRUBIN DIPSTICK NEGATIVE NEGATIVE UA BLOOD DIPSTICK 2+ NEGATIVE UA SPECIFIC GRAVITY 1.010 1.015-1.025 UR PH 8.0 5.0-7.0 UA MICROSCOPIC - 01/03/15 14:45 UA AMORPHOUS SEDIMENT 3+ UA BACTERIA 2+ NEGATIVE UA EPITHELIAL CELLS 1+ epi/hpf 0 - 1+ UA MUCUS 1+ NEG TO 1+ UA RBC 5-10 rbc/hpf 0 - 3 UA VOLUME FOR EXAM 12.0 mL (12mL STD) UA WBC 5-10 wbc/hpf 0 - 5 UR TEST - 01/03/15 14:45 UR TEST NEGATIVE NEGATIVE UR DRUGS OF ABUSE SCREEN - 01/03/15 14:45 UR AMPHETAMINES SCREEN POS (>1000 ng/mL) NEGATIVE UR BARBITURATE SCREEN NEG (< 200 ng/mL) NEGATIVE DRUGS OF ABUSE SCREEN COMMENT UR OPIATES SCREEN NEG (< 300 ng/mL) NEGATIVE UR PHENCYCLIDINE (PCP) SCREEN NEG (< 25 ng/mL) NEGATIVE UR CANNABINOIDS (THC) SCREEN NEG (< 50 ng/mL) NEGATIVE UR COCAINE METABOLITE SCREEN NEG (< 300 ng/mL) NEGATIVE UR METHADONE SCREEN NEG (< 300 ng/mL) NEGATIVE UR BENZODIAZEPINE SCREEN NEG (< 200 ng/mL) NEGATIVE URINE CULTURE - 01/03/15 14:45 Microbiology Screen, Urine NPT - 01/11/17 11:37 Screen, Urine NPT Negative NA CBC With Platelet and Differential - 01/11/17 11:38 Absolute Basophils 0.05 10*3/uL 0.00-0.20 Absolute Eosinophils 0.03 10*3/uL 0.00-0.50 Absolute Lymphocytes 2.33 10*3/uL 0.80-3.30 Absolute Monocytes 2.25 10*3/uL 0.30-1.00 Absolute Neutrophils 15.92 10*3/uL 1.90-7.00 Basophils 0 % 0-2 Eosinophils 0 % 0-4 HCT 40.5 % 37.0-47.0 HGB 14.0 g/dL 12.0-16.0 Immature Granulocytes 0.5 % 0.0-1.0 Lymphocytes 11 % 20-46 MCH 31.7 pg 27.0-32.0 MCHC 34.6 g/dL 32.0-36.0 MCV 91.8 fL 82.0-99.0 Monocytes 11 % 4-11 MPV 9.7 fL 9.4-12.4 Neutrophils 77 % 51-75 Nucleated RBC Automated 0.0 /100 WBC Platelet Count 312 K/uL 150-400 RBC 4.41 10*6/uL 4.00-5.20 RDW 12.4 % 11.5-14.5 WBC 20.7 K/uL 4.8-10.8 Comprehensive Metabolic Panel (CMP) - 01/11/17 11:38 Albumin 3.9 g/dL 3.5-4.8 Alkaline Phosphatase 63 U/L 26-104 ALT (SGPT) 14 U/L 14-54 Anion Gap 10 mEq/L 3-20 AST (SGOT) 20 U/L 15-41 Bilirubin Total 1.2 mg/dL 0.2-1.2 BUN 10 mg/dL 4-20 Calcium 9.2 mg/dL 8.6-10.0 Chloride 98 mEq/L 99-109 CO2 24 mEq/L 22-32 Creatinine 0.89 mg/dL 0.44-1.03 Globulin 3.4 g/dL 1.9-4.3 Glucose 106 mg/dL 70-100 Potassium 3.9 mEq/L 3.6-5.1 Protein 7.3 g/dL 6.1-7.9 Sodium 132 mEq/L 136-144 eGFR - 01/11/17 11:38 eGFR >60 mL/min >60 Urinalysis with reflex microscopic - 01/11/17 11:38 Appearance Cloudy NA Bilirubin Negative NA Negative Blood Pos 2+ NA Negative Color Yellow NA Glucose, Urine Negative Negative Ketones Trace Negative Leukocyte Esterase Pos 2+ NA Negative Nitrites Positive NA Negative pH 5.0 NA 5.0-8.0 Protein Pos 1+ NA Negative Specific [place] 1.015 NA 1.003-1.030 UA Collection type Catheter NA Urobilinogen Negative mg/dL <1.0 Urine Microscopic - 01/11/17 11:38 Bacteria Moderate NA Epithelial Cells 0 /HPF RBC, Urine 10 /HPF 0-2 Urine Mucus Present NA WBC, Urine >50 /HPF 0-4 Screen, Urine - 01/11/17 11:38 Screen, Urine Negative NA HIV Antigen/Antibody Combo - 01/11/17 11:38 HIV Antigen/Antibody Combo Negative NA Lactic Acid NPT - 01/11/17 13:42 Lactic Acid NPT 0.4 mEq/L 0.5-2.0 CBC With Platelet and Differential - 01/12/17 06:53 Absolute Basophils 0.03 10*3/uL 0.00-0.20 Absolute Eosinophils 0.21 10*3/uL 0.00-0.50 Absolute Lymphocytes 2.65 10*3/uL 0.80-3.30 Absolute Monocytes 1.71 10*3/uL 0.30-1.00 Absolute Neutrophils 9.99 10*3/uL 1.90-7.00 Basophils 0 % 0-2 Eosinophils 1 % 0-4 HCT 34.5 % 37.0-47.0 HGB 11.4 g/dL 12.0-16.0 Immature Granulocytes 0.4 % 0.0-1.0 Lymphocytes 18 % 20-46 MCH 30.8 pg 27.0-32.0 MCHC 33.0 g/dL 32.0-36.0 MCV 93.2 fL 82.0-99.0 Monocytes 12 % 4-11 MPV 9.8 fL 9.4-12.4 Neutrophils 68 % 51-75 Nucleated RBC Automated 0.0 /100 WBC Platelet Count 242 K/uL 150-400 RBC 3.70 10*6/uL 4.00-5.20 RDW 12.3 % 11.5-14.5 WBC 14.6 K/uL 4.8-10.8 Phosphorus - 01/12/17 06:53 Phosphorus 3.0 mg/dL 2.4-4.7 Magnesium - 01/12/17 06:53 Magnesium 2.0 mg/dL 1.8-2.5 Comprehensive Metabolic Panel (CMP) - 01/12/17 06:53 Albumin 2.9 g/dL 3.5-4.8 Alkaline Phosphatase 74 U/L 26-104 ALT (SGPT) 13 U/L 14-54 Anion Gap 2 mEq/L 3-20 AST (SGOT) 15 U/L 15-41 Bilirubin Total 0.8 mg/dL 0.2-1.2 BUN 8 mg/dL 4-20 Calcium 8.2 mg/dL 8.6-10.0 Chloride 105 mEq/L 99-109 CO2 28 mEq/L 22-32 Creatinine 0.80 mg/dL 0.44-1.03 Globulin 2.8 g/dL 1.9-4.3 Glucose 95 mg/dL 70-100 Potassium 3.7 mEq/L 3.6-5.1 Protein 5.7 g/dL 6.1-7.9 Sodium 135 mEq/L 136-144 eGFR - 01/12/17 06:53 eGFR >60 mL/min >60 Renal Function Panel - 01/13/17 05:16 Albumin 2.9 g/dL 3.5-4.8 Anion Gap 6 mEq/L 3-20 BUN 5 mg/dL 4-20 Calcium 8.6 mg/dL 8.6-10.0 Chloride 104 mEq/L 99-109 CO2 27 mEq/L 22-32 Creatinine 0.66 mg/dL 0.44-1.03 Glucose 97 mg/dL 70-100 Phosphorus 3.7 mg/dL 2.4-4.7 Potassium 4.1 mEq/L 3.6-5.1 Sodium 137 mEq/L 136-144 Magnesium - 01/13/17 05:16 Magnesium 1.9 mg/dL 1.8-2.5 eGFR - 01/13/17 05:16 eGFR >60 mL/min >60 CBC With Platelet and Differential - 01/13/17 05:17 Absolute Basophils 0.03 10*3/uL 0.00-0.20 Absolute Eosinophils 0.34 10*3/uL 0.00-0.50 Absolute Lymphocytes 2.33 10*3/uL 0.80-3.30 Absolute Monocytes 1.36 10*3/uL 0.30-1.00 Absolute Neutrophils 7.14 10*3/uL 1.90-7.00 Basophils 0 % 0-2 Eosinophils 3 % 0-4 HCT 33.9 % 37.0-47.0 HGB 11.1 g/dL 12.0-16.0 Immature Granulocytes 0.2 % 0.0-1.0 Lymphocytes 21 % 20-46 MCH 30.6 pg 27.0-32.0 MCHC 32.7 g/dL 32.0-36.0 MCV 93.4 fL 82.0-99.0 Monocytes 12 % 4-11 MPV 10.2 fL 9.4-12.4 Neutrophils 64 % 51-75 Nucleated RBC Automated 0.0 /100 WBC Platelet Count 270 K/uL 150-400 RBC 3.63 10*6/uL 4.00-5.20 RDW 12.1 % 11.5-14.5 WBC 11.2 K/uL 4.8-10.8 CULTURE, URINE - 08/03/17 15:49 CULTURE, URINE, ROUTINE SEE NOTE NRG CULTURE, GENITAL - 12/19/17 14:29 CULTURE, GENITAL SEE NOTE NRG Encounters ACCT No. Visit Date/Time Discharge Status Pt. Type Provider Facility Loc./Unit Complaint [id number] 04/18/2017 15:06:00 04/18/2017 15:35:00 DIS Emergency Danial GALLEGOS, [facility] W.EDW [id number] 03/24/2017 19:09:00 03/24/2017 19:20:00 DIS Emergency Yuan GALLEGOS, [facility].JUNI [id number] 01/08/2017 12:36:00 01/08/2017 14:15:00 DIS Emergency Deidra GALLEGOS, [facility].EDW [id number] 03/20/2016 21:48:00 03/20/2016 22:40:00 DIS Emergency Tone Youngblood DO [facility] W.ED [id number] 01/20/2015 16:31:00 01/20/2015 18:22:00 DIS Emergency Alpesh GALLEGOS, [facility].NOELLE [id number] 01/03/2015 14:03:00 01/03/2015 16:17:00 DIS [id number] 06/29/2014 19:23:00 06/29/2014 21:31:00 DIS Emergency Flavio SIMPSON Oli Jung [facility] W.EDW [id number] 12/23/2012 14:41:00 12/26/2012 21:30:00 DIS Inpatient Tiffanie GALLEGOS, Edgardo Bergman [facility] W.3WH [id number] 08/31/2012 19:04:00 08/31/2012 22:45:00 DIS Emergency Figueroa Flores MD Nohemy [facility] W.2WOBED [id number] 12/05/2014 10:30:00 Document Registration [id number] 03/10/2017 07:13:00 03/10/2017 09:02:00 DIS Emergency Martinez [facility] on [facility] ED R shoulder injury [id number] 01/11/2017 11:14:00 01/13/2017 14:07:00 DIS Inpatient Real Paul [facility] on [facility] F4SW pyelonephritis, fever, weakness [id number] 12/15/2016 12:18:00 12/15/2016 14:28:00 DIS Emergency [facility] on [facility] ED back and neck injury [id number] 06/14/2016 22:22:00 06/15/2016 00:44:00 DIS Emergency [facility] on [facility] ED sore throat, body aches [id number] 04/07/2016 10:11:00 04/07/2016 10:44:00 DIS Emergency [facility] on [facility] ED VILCHIS, jaw pain [id number] 03/22/2016 18:32:00 03/22/2016 19:42:00 DIS Emergency [facility] on [facility] ED neck/left shoulder pain [id number] 03/19/2016 18:15:00 03/19/2016 20:15:00 DIS Emergency [facility] on [facility] ED neck pain [id number] 12/27/2015 11:48:00 12/27/2015 14:02:00 DIS Emergency Lashay [facility] on [facility] ED cough, L shoulder pain [id number] 01/14/2015 18:40:00 01/14/2015 21:55:00 DIS Emergency Angel GALLEGOS, Otto Morales [facility] GENERAL BODY PAIN [id number] 03/11/2017 05:16:18 Document Registration [id number] 01/14/2017 05:15:59 Document Registration [id number] 01/12/2017 05:17:16 Document Registration [id number] 12/16/2016 05:17:35 Document Registration [id number] 06/15/2016 05:15:48 Document Registration [id number] 04/08/2016 05:16:21 Document Registration [id number] 03/20/2016 05:15:33 Document Registration [id number] 12/28/2015 05:18:09 Document Registration [id number] 01/15/2015 05:16:37 Document Registration [id number] 11/26/2017 12:09:00 11/26/2017 23:59:59 CLS Outpatient TRACEY DUENAS APRN [facility] RAD N64.4 BREAST TENDERNESS [id number] 02/15/2018 14:36:00 ACT Emergency [place] GALLEGOS, VU Jung [facility] ER LUMP ON LEFT BREAST [id number] 08/31/2017 16:00:00 08/31/2017 23:59:59 CLS Outpatient ELSA SYED [facility] DENTAL [id number] 12/19/2017 13:15:00 Document Registration [id number] 08/03/2017 14:50:00 Document Registration
[2018-02-15 15:03] VITALS: BP 146/91
--- NOTE | 2018-02-15 16:28 | ED General ---
General Chief Complaint: -Female Stated Complaint: LUMP ON LEFT BREAST Nursing Triage Note: HARD RED MASS TO LEFT BREAST- PAINFUL Nursing Sepsis Screen: No Definite Risk History of Present Illness Initial Comments Patient left AMA prior to being seen by this provider. Allergies and Home Medications Allergies Coded Allergies: No Known Drug Allergies (Unverified , 02/15/18) Past Muuaakf-Lfddme-Ltjjwk Hx Patient Social History Alcohol Use: Rarely Uses Recreational Drug Use: No Smoking Status: Current Everyday Smoker Type Used: Cigarettes 2nd Hand Smoke Exposure: No Recent Foreign Travel: No Contact w/Someone Who Travel: No Recent Infectious Disease Expo: No Recent Hopitalizations: No Immunizations Up To Date Tetanus Booster (TDap): Less than 5yrs Seasonal Allergies Seasonal Allergies: No Past Medical History Surgeries: Yes Section Respiratory: Yes Chronic Bronchitis Cardiac: No Neurological: No Sexually Transmitted Disease: No Genitourinary: No ("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 oz. 63.999534zr; BMI Method:Stated Progress/Results/Core Measures Suspected Sepsis Recent Fever Within 48 Hours: No Infection Criteria Present: Suspected New Infection New/Unexplained Altered Menta: No Sepsis Screen: No Definite Risk SIRS Temperature:96.5 Pulse: 84 Respiratory Rate: 16 Blood Pressure 146 /91 Mean: 109 Results/Orders Vital Signs/I&O 02/15/18 15:03 Temp 96.5 Pulse 84 Resp 16 B/P (MAP) 146/91 (109) Pulse Ox 95 Capillary Refill : Less Than 3 Seconds Blood Pressure Mean: 109 Departure Impression Disposition: 01 HOME, SELF-CARE Condition: Against Medical Advice Departure-Patient Inst. Referrals: NO,LOCAL PHYSICIAN (PCP/Family) Primary Care Physician LEE DOMINGUEZ Feb 15, 2018 16:28
[2018-02-19] MEDS ORDERED: ACHD5005 PO ×2 (11:23)
== END 2018-02-15 16:20 | disposition left against medical advice (07) ==
LOC: EDUNIT# 14:35 → ER 14:36
DX: N63.20 Unspecified lump in the left breast, unspecified quadrant (principal); J42 Unspecified chronic bronchitis; F17.210 Nicotine dependence, cigarettes, uncomplicated
CPT/HCPCS: 99282

== ENCOUNTER 2018-02-18 21:54 | Observation (INO) | payer SELFPAY ==
[~2018-02-18] VITALS: Ht 172.7 cm; Wt 75.8 kg
--- OUTSIDE RECORDS SUMMARY | 2018-02-18 22:00 | XMS REPORT ---
Author Author CATHI BEAR Organization [facility] Address [address] [place] [address] Care Team Providers Care Religious Assistant Name Role Phone CATHI BEAR Unavailable PROBLEMS No Known Problems ALLERGIES No Information ENCOUNTERS Encounter Location Date Diagnosis [facility] [address] [address] Jan, Cellulitis of other specified site L03.818 and Abscess L02.91 [facility] [address] [address] Jan, [facility] [address] [address] Nov, Possible exposure to STD Z20.2 [place] [address] [address] 18 Oct, 2017 Breast tenderness in female N64.4 [place] [address] [address] 11 Oct, 2017 Acute bronchitis, unspecified organism J20.9 [facility] [address] [place] [id number] [place] [phone] Aug, Dental examination Z01.20 [facility] [address] [phone] Jul, Encounter for dental exam and cleaning w/o abnormal findings Z01.20 [facility] [address] [address] Jul, Flank pain R10.9 and Acute cystitis with hematuria N30.01 IMMUNIZATIONS No Known Immunizations SOCIAL HISTORY Never Assessed REASON FOR VISIT red area on left breast for the past 2 days. reports it is painful et hard. no copay at this time. decision mad by this RN to have pt see as a walkin pt. [email or web address] PLAN OF CARE VITAL SIGNS Height 68 in 2018-02-16 Weight 165.8 lbs 2018-02-16 Temperature 98.0 degrees Fahrenheit 2018-02-16 Heart Rate 66 bpm 2018-02-16 Respiratory Rate 20 2018-02-16 BMI 25.21 kg/m2 2018-02-16 Blood pressure systolic 128 mmHg 2018-02-16 Blood pressure diastolic 82 mmHg 2018-02-16 MEDICATIONS No Known Medications RESULTS No Results PROCEDURES No Known procedures INSTRUCTIONS MEDICATIONS ADMINISTERED No Known Medications MEDICAL (GENERAL) HISTORY Type Description Date Surgical History 2x 2012 Hospitalization History surgeries Hospitalization History infection in bloodstream
--- OUTSIDE RECORDS SUMMARY | 2018-02-18 22:00 | XMS REPORT ---
Author Author CATHI BEAR Organization [facility] Address [address] [place] [address] Care Team Providers Care Cnc Operator Name Role Phone CATHI BEAR Unavailable PROBLEMS No Known Problems ALLERGIES No Known Allergies ENCOUNTERS Encounter Location Date Diagnosis [facility] [address] [address] Jan, Cellulitis of other specified site L03.818 and Abscess L02.91 [facility] [address] [address] Jan, [facility] [address] [address] Nov, Possible exposure to STD Z20.2 [place] [address] [address] 18 Oct, 2017 Breast tenderness in female N64.4 [place] [address] [address] 11 Oct, 2017 Acute bronchitis, unspecified organism J20.9 [facility] [address] [phone] Aug, Dental examination Z01.20 [facility] [address] [phone] Jul, Encounter for dental exam and cleaning w/o abnormal findings Z01.20 [facility] [address] [address] Jul, Flank pain R10.9 and Acute cystitis with hematuria N30.01 IMMUNIZATIONS Vaccine Route Administration Date Status ROCEPHIN 1 GM (IM) IM Intramuscular Feb 16, 2018 Administered SOCIAL HISTORY Never Assessed REASON FOR VISIT red area on left breast for the past 2 days. reports it is painful et hard. no copay at this time. eliseo PLAN OF CARE Activity Details Follow Up 2 - 3 Days, prn Reason: VITAL SIGNS Height 68 in 2018-02-16 Weight 165.8 lbs 2018-02-16 Temperature 98.0 degrees Fahrenheit 2018-02-16 Heart Rate 66 bpm 2018-02-16 Respiratory Rate 20 2018-02-16 BMI 25.21 kg/m2 2018-02-16 Blood pressure systolic 128 mmHg 2018-02-16 Blood pressure diastolic 82 mmHg 2018-02-16 MEDICATIONS Medication Instructions Dosage Frequency Start Date End Date Duration Status Clindamycin HCl 150 MG Orally every 8 hrs 1 capsule 8h Jan, 10 days Active RESULTS No Results PROCEDURES Procedure Date Ordered Result Body Site ROCEPHIN 1 GM (IM) Feb 16, 2018 THER/PROPH/DIAG INJ, SC/IM Feb 16, 2018 INSTRUCTIONS MEDICATIONS ADMINISTERED No Known Medications MEDICAL (GENERAL) HISTORY Type Description Date Surgical History 2x 2012 Hospitalization History surgeries Hospitalization History infection in bloodstream
--- OUTSIDE RECORDS SUMMARY | 2018-02-18 22:01 | XMS REPORT | Continuity of Care Document ---
Author Author [facility] Organization [facility] Address Unknown Phone Unavailable Allergies Active Description Code Type Severity Reaction Onset Reported/Identified Relationship to Patient Clinical Status Yes No Known Drug Intolerances No Known Drug Intolerances Drug Allergy Unknown NONE 01/03/2015 Yes No Known Medication Allergies NKMA N/A N/A 01/14/2015 Yes No Known Allergies No Known Allergies Drug Allergy Unknown N/A 2016 Yes No Known Drug Allergies [id number] Drug Allergy Unknown N/A 02/15/2018 Medications Medication Packaging Start Date Stop Date Route Dosage Sig ondansetron(Zofran) 2 mL 201401/14/2015 IV Push 4 mg 4 mg=2 mL, IV Push, Once ketorolac(Toradol) 1 mL 01/14/2015 01/14/2015 IV Push 30 mg 30 mg=1 mL, IV Push, Once HYDROcodone-acetaminophen([place] 7.5 mg-325 mg oral tablet) 1 tabs 01/14/2015 01/14/2015 Oral 1 tabs, Oral, Once HYDROcodone-acetaminophen([place] 5 mg-325 mg oral tablet) 1 tabs [...] 03/19/2016 03/19/2016 Oral 1 tabs, Oral, Once HYDROcodone-acetaminophen([place] 5 mg-325 mg oral tablet) 1 tabs 03/19/2016 03/19/2017 Oral 1 tabs, Oral, q6hr, PRN: as needed for pain , 12 tabs, 0 Refill(s) cyclobenzaprine(cyclobenzaprine 10 mg oral tablet) 1 tabs 03/19/2016 03/19/2017 Oral 10 mg 10 mg=1 tabs, Oral, TID, PRN: as needed for spasm, 10 tabs, 0 Refill(s) HYDROcodone-acetaminophen([place] 5 mg-325 mg oral tablet) 1 tabs [...] needed for spasm, 15 tabs, 0 Refill(s) HYDROcodone-acetaminophen([place] 5 mg-325 mg oral tablet) 1 tabs [...] mL 01/11/2017 01/12/2017 IV 150 mL/hr, IV HYDROcodone-acetaminophen([place] 7.5 mg-325 mg oral tablet) 1 tabs [...] Howard Final Y93.89 Activity, other specified 03/24/2016 Martinez,, Otto Final M25.512 Pain in left shoulder 03/24/2016 Martinez,, Otto Reason M54.2 Cervicalgia 04/10/2016 Martinez,, Otto Final [...] static or awkward postures, initial encounter 01/11/2017 Berhaneundclara,Burke Admitting J06.9 01/16/2017 Ndunda,Burke Admitting A41.51 Sepsis due to Escherichia coli [E. coli] 01/16/2017 Ndunda,Burke Final E87.1 Hypo-osmolality and hyponatremia 01/16/2017 Ndunda,Burke Final F17.210 Nicotine dependence, cigarettes, uncomplicated 01/16/2017 Ndunda,Burke Final J06.9 Acute upper respiratory infection, unspecified 01/16/2017 Ndunda,Burke Final N39.0 Urinary tract infection, site not specified 01/16/2017 Berhaneundclara,Burke Final A41.51 Sepsis due to Escherichia coli [E. coli] 03/12/2017 Angel,, Otto Final F17.210 Nicotine dependence, cigarettes, uncomplicated 03/12/2017 Angel,Otto Reason M25.511 Pain in right shoulder 03/12/2017 Martinez Howard Final W00.0XXA Fall on same level due to ice and snow, initial encounter 03/12/2017 Martinez Howard Final W22.8XXA Striking against or struck by other objects, initial encounter 03/12/2017 Martinez Howard Final Z86.718 Personal history of other venous thrombosis and embolism 12/07/2017 TRACEY DUENAS [employer] Ot N64.4 MASTODYNIA 12/09/2017 TRACEY DUENAS [employer] Ot N64.4 MASTODYNIA Procedures Code Description Performed [...] 5.0-8.0 Protein Pos 1+ NA Negative Specific Mcbain 1.015 NA 1.003-1.030 UA Collection type Catheter [...] Status Pt. Type Provider Facility Loc./Unit Complaint [id number] 04/18/2017 15:06:00 04/18/2017 15:35:00 DIS Emergency Danial GALLEGOS, [facility].EDW [id number] 03/24/2017 19:09:00 03/24/2017 19:20:00 DIS Emergency Yuan GALLEGOS, [facility] W.JUNI [id number] 01/08/2017 12:36:00 01/08/2017 14:15:00 DIS Emergency Deidra GALLEGOS, [facility] W.EDW [id number] 03/20/2016 21:48:00 03/20/2016 22:40:00 DIS Emergency Ford [facility].ED [id number] 01/20/2015 16:31:00 01/20/2015 18:22:00 DIS Emergency Alpesh GALLEGOS, [facility] W.NOELLE [id number] 01/03/2015 14:03:00 01/03/2015 16:17:00 DIS Emergency Laura GALLEGOS, Rina [facility].EDW [id number] 06/29/2014 19:23:00 06/29/2014 21:31:00 DIS Emergency [facility] [id number] 12/23/2012 14:41:00 12/26/2012 21:30:00 DIS Inpatient Tiffanie GALLEGOS, Edgardo [facility] W.3WH [id number] 08/31/2012 19:04:00 08/31/2012 22:45:00 DIS Emergency Mark GALLEGOS, Figueroa [facility] W.2WOBED [id number] 12/05/2014 10:30:00 Document Registration [id number] 03/10/2017 07:13:00 03/10/2017 09:02:00 DIS Emergency Martinez Howard [facility] on [facility] ED R shoulder injury [id number] 01/11/2017 11:14:00 01/13/2017 14:07:00 DIS Inpatient Real Paul [facility] F4SW pyelonephritis, fever, weakness [id number] 12/15/2016 12:18:00 12/15/2016 14:28:00 DIS Emergency Martinez Howard [facility] ED back and neck injury [id number] 06/14/2016 22:22:00 06/15/2016 00:44:00 DIS Emergency Martinez Howard [facility] ED sore throat, body aches [id number] 04/07/2016 10:11:00 04/07/2016 10:44:00 DIS Emergency Martinez Howard [facility] ED V[place]CHIS, jaw pain [id number] 03/22/2016 18:32:00 03/22/2016 19:42:00 DIS Emergency Martinez Howard [facility] ED neck/left shoulder pain [id number] 03/19/2016 18:15:00 03/19/2016 20:15:00 DIS Emergency Martinez Howard [facility] ED neck pain [id number] 12/27/2015 11:48:00 12/27/2015 14:02:00 DIS Emergency Lashay Rosario [facility] ED cough, L shoulder pain [id number] 01/14/2015 18:40:00 01/14/2015 21:55:00 DIS Emergency Otto Martinez MD [facility] GENERAL BODY PAIN [id number] 03/11/2017 05:16:18 Document Registration [id number] 01/14/2017 05:15:59 Document Registration [id number] 01/12/2017 05:17:16 Document Registration [id number] 12/16/2016 05:17:35 Document Registration [id number] 06/15/2016 05:15:48 Document Registration [id number] 04/08/2016 05:16:21 Document Registration [id number] 03/20/2016 05:15:33 Document Registration [id number] 12/28/2015 05:18:09 Document Registration [id number] 01/15/2015 05:16:37 Document Registration [id number] 02/15/2018 14:36:00 02/15/2018 16:20:00 DIS Emergency LEE DOMINGUEZ [employer] SUPERVIS[employer] [facility] ER LUMP ON LEFT BREAST [id number] 11/26/2017 12:09:00 11/26/2017 23:59:59 CLS Outpatient TRACEY DUENAS Himanshu GASTELUM [facility] RAD N64.4 BREAST TENDERNESS [id number] 08/31/2017 16:00:00 08/31/2017 23:59:59 CLS [facility] [id number] 12/19/2017 13:15:00 Document Registration [id number] 08/03/2017 14:50:00 Document Registration
--- NOTE | 2018-02-18 22:12 | ED Integumentary General ---
General Chief Complaint: Skin/Wound Problems Stated Complaint: CELLULITIS IN CHEST Source: patient Exam Limitations: no limitations History of Present Illness Date Seen by Provider: Feb 18, 2018 Time Seen by Provider: 22:10 Initial Comments To ER with reports of cellulitis to the left breast. This is been present for 3 days. She is not breast-feeding. She denies any discharge. She reports chills but no fevers. She states that she has had cellulitis several times before but never on the breast. [facility] at the onset of this 3 days ago and started on clindamycin but she denies any improvement. Timing/Duration: getting worse Severity: moderate Allergies and Home Medications Allergies Coded Allergies: No Known Drug Allergies (Unverified , 02/15/18) Patient Home Medication List Home Medication List Reviewed: Yes Review of Systems Review of Systems Constitutional: see HPI, chills; No fever EENTM: see HPI Respiratory: no symptoms reported Genitourinary: no symptoms reported Musculoskeletal: no symptoms reported Skin: see HPI Past Cupuhdn-Ysfpyl-Hmuaty Hx Patient Social History Type Used: Cigarettes 2nd Hand Smoke Exposure: No Recent Foreign Travel: No Contact w/Someone Who Travel: No Recent Hopitalizations: No Immunizations Up To Date Tetanus Booster (TDap): Less than 5yrs Seasonal Allergies Seasonal Allergies: No Past Medical History Surgeries: Yes Section Respiratory: Yes Chronic Bronchitis Cardiac: No Neurological: No Sexually Transmitted Disease: No Genitourinary: No ("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) Gastrointestinal: No Musculoskeletal: No Endocrine: No HEENT: No Cancer: No Psychosocial: No Integumentary: No Blood Disorders: No Physical Exam Vital Signs Vital Signs - First Documented 02/18/18 21:59 Temp 97.0 Pulse 96 Resp 12 B/P (MAP) 156/100 (118) Pulse Ox 100 O2 Delivery Room Air Capillary Refill : General Appearance: WD/WN, no apparent distress HEENT: PERRL/EOMI, normal ENT inspection Neck: non-tender, full range of motion Respiratory: no respiratory distress, no accessory muscle use Gastrointestinal: normal bowel sounds, non tender Neurologic/Psychiatric: alert, normal mood/affect, oriented x 3 Skin: normal color, warm/dry, other (breast exam done with Chen KIM at the bedside. There is erythema well demarcated to the breast extending about 5 cm out in all directions from the areola. The retroareolar region is exquisitely tender and firm. We do not have ultrasound available but when I lay the bedside ultrasound probe on this I do see what appears to be a fluid collection consistent with an abscess) Procedures/Interventions I&D : Progress Ultrasound guidance at the bedside, the left breast was anesthetized at the 11: 00 position where there was an area of fluid collection seen in the subareolar space. 1 mL of lidocaine without epinephrine was then injected. I was unable to aspirate 2 mL of purulent material from this 11:00 position has behind the areola. Patient tolerated well. This was sent to lab for culture. Gloria PCT at the bedside during procedure. Progress/Results/Core Measures Results/Orders Lab Results Laboratory Tests Test 02/18/18 22:20 Range/Units White Blood Count 15.7 H 4.3-11.0 10^3/uL Red Blood Count 4.60 4.35-5.85 10^6/uL Hemoglobin 14.4 11.5-16.0 G/DL Hematocrit 42 35-52 % Mean Corpuscular Volume 91 80-99 FL Mean Corpuscular Hemoglobin 31 25-34 PG Mean Corpuscular Hemoglobin Concent 35 32-36 G/DL Red Cell Distribution Width 12.7 10.0-14.5 % Platelet Count 343 130-400 10^3/uL Mean Platelet Volume 9.4 7.4-10.4 FL Neutrophils (%) (Auto) 72 42-75 % Lymphocytes (%) (Auto) 19 12-44 % Monocytes (%) (Auto) 7 0-12 % Eosinophils (%) (Auto) 2 0-10 % Basophils (%) (Auto) 0 0-10 % Neutrophils # (Auto) 11.3 H 1.8-7.8 X 10^3 Lymphocytes # (Auto) 2.9 1.0-4.0 X 10^3 Monocytes # (Auto) 1.1 H 0.0-1.0 X 10^3 Eosinophils # (Auto) 0.3 0.0-0.3 10^3/uL Basophils # (Auto) 0.1 0.0-0.1 10^3/uL Neutrophils % (Manual) 60 % Lymphocytes % (Manual) 28 % Monocytes % (Manual) 7 % Eosinophils % (Manual) 3 % Basophils % (Manual) 1 % Band Neutrophils 1 % Blood Morphology Comment NORMAL Sodium Level 137 135-145 MMOL/L Potassium Level 4.3 3.6-5.0 MMOL/L Chloride Level 105 98-107 MMOL/L Carbon Dioxide Level 19 L 21-32 MMOL/L Anion Gap 13 5-14 MMOL/L Blood Urea Nitrogen 15 7-18 MG/DL Creatinine 0.79 0.60-1.30 MG/DL Estimat Glomerular Filtration Rate > 60 BUN/Creatinine Ratio 19 Glucose Level 81 70-105 MG/DL Calcium Level 9.7 8.5-10.1 MG/DL Serum Test, Qualitative NEGATIVE NEGATIVE My Orders Orders - MARÍA STONE APRN Cbc With Automated Diff (02/18/18 22:07) Iv Heplock-Insert (Order) (02/18/18 22:07) Basic Metabolic Panel (02/18/18 22:07) Hcg,Qualitative Serum (02/18/18 22:07) Fentanyl Injection (Sublimaze Injection (02/18/18 22:15) Clindamycin 900 Mg/50 Ml Ivpb (Cleocin P (02/18/18 22:15) Manual Differential (02/18/18 22:20) Body Fluid Culture (02/18/18 23:12) Medications Given in ED Current Medications Medications Dose Ordered Sig/Migue Route Start Time Stop Time Status Last Admin Dose Admin Clindamycin Phosphate/Dextrose 50 ml @ 100 mls/hr ONCE ONCE IV 02/18/18 22:15 02/18/18 22:44 DC 02/18/18 22:55 100 MLS/HR Fentanyl Citrate 50 mcg ONCE ONCE IVP 02/18/18 22:15 02/18/18 22:16 DC 02/18/18 22:55 50 MCG Vital Signs/I&O 02/18/18 21:59 Temp 97.0 Pulse 96 Resp 12 B/P (MAP) 156/100 (118) Pulse Ox 100 O2 Delivery Room Air Departure Communication (Admissions) Time/Spoke to Admitting Phy: 23:[address] Kumar. We will admit, IV clindamycin, plan for incision and drainage in the morning tentatively pending his exam and determination of appropriateness of incision and drainage. Impression Primary Impression: Cellulitis of left breast Additional Impression: Abscess of left breast Disposition: HOME, SELF-CARE Condition: Stable Admissions Decision to Admit Reason: Admit from ER (General) Decision to Admit/Date: Feb 18, 2018 Time/Decision to Admit Time: 23:15 Departure-Patient Inst. Referrals: NO,LOCAL PHYSICIAN (PCP/Family) Primary Care Physician MARÍA STONE APRN Feb 18, 2018 22:12
[2018-02-18] MEDS ORDERED: fentaNYL INJECTION 100 MCG/2 ML AMP IVP ONE (22:15)
[2018-02-18] MEDS ORDERED: CLINDAMYCIN 900 MG/50 ML IVPB 50 ML IV ONE (22:15)
[2018-02-18 22:36] LABS: BASOPHILS # (AUTO) 0.1 10^3/uL (0.0-0.1); BASOPHILS % (AUTO) 0 % (0-10); EOSINOPHILS # (AUTO) 0.3 10^3/uL (0.0-0.3); EOSINOPHILS % (AUTO) 2 % (0-10); HEMATOCRIT 42 % (35-52); HEMOGLOBIN 14.4 G/DL (11.5-16.0); LYMPHOCYTES # (AUTO) 2.9 X 10^3 (1.0-4.0); LYMPHOCYTES % (AUTO) 19 % (12-44); MEAN CORPUSCULAR HEMOGLOBIN 31 PG (25-34); MEAN CORPUSCULAR HGB CONC 35 G/DL (32-36); MEAN CORPUSCULAR VOLUME 91 FL (80-99); MEAN PLATELET VOLUME 9.4 FL (7.4-10.4); MONOCYTES # (AUTO) 1.1 X 10^3 (0.0-1.0); MONOCYTES % (AUTO) 7 % (0-12); NEUTROPHILS # (AUTO) 11.3 X 10^3 (1.8-7.8); NEUTROPHILS % (AUTO) 72 % (42-75); PLATELET COUNT 343 10^3/uL (130-400); RED CELL DISTRIBUTION WIDTH 12.7 % (10.0-14.5); WHITE BLOOD COUNT 15.7 10^3/uL (4.3-11.0)
[2018-02-18 22:49] LABS: BAND NEUTROPHILS 1 %; BASOPHILS % (MANUAL) 1 %; BUN/CREATININE RATIO 19; CALCIUM 9.7 MG/DL (8.5-10.1); CARBON DIOXIDE 19 MMOL/L (21-32); CHLORIDE 105 MMOL/L (98-107); CREATININE SERUM 0.79 MG/DL (0.60-1.30); EOSINOPHILS % (MANUAL) 3 %; GFR ESTIMATED > 60; GLUCOSE 81 MG/DL (70-105); LYMPHOCYTES % (MANUAL) 28 %; MONOCYTES % (MANUAL) 7 %; NEUTROPHILS % (MANUAL) 60 %; POTASSIUM 4.3 MMOL/L (3.6-5.0); RBC MORPH NORMAL; SODIUM 137 MMOL/L (135-145)
--- OUTSIDE RECORDS SUMMARY | 2018-02-18 23:35 | XMS REPORT | Continuity of Care Document ---
Author Author [facility] Organization [facility] Address Unknown Phone Unavailable Allergies Active Description Code Type Severity Reaction Onset Reported/Identified Relationship to Patient Clinical Status Yes No Known Drug Intolerances No Known Drug Intolerances Drug Allergy Unknown NONE 01/03/2015 Yes No Known Medication Allergies NKMA N/A N/A 01/14/2015 Yes No Known Allergies No Known Allergies Drug Allergy Unknown N/A 2016 Yes No Known Drug Allergies [id number] Drug Allergy Unknown N/A 02/15/2018 Medications Medication Packaging Start Date Stop Date Route Dosage Sig ondansetron(Zofran) 2 mL 201401/14/2015 IV Push 4 mg 4 mg=2 mL, IV Push, Once ketorolac(Toradol) 1 mL 01/14/2015 01/14/2015 IV Push 30 mg 30 mg=1 mL, IV Push, Once HYDROcodone-acetaminophen(Edmond 7.5 mg-325 mg oral tablet) 1 tabs 01/14/2015 01/14/2015 Oral 1 tabs, Oral, Once HYDROcodone-acetaminophen(Edmond 5 mg-325 mg oral tablet) 1 tabs [...] 03/19/2016 03/19/2016 Oral 1 tabs, Oral, Once HYDROcodone-acetaminophen(Edmond 5 mg-325 mg oral tablet) 1 tabs 03/19/2016 03/19/2017 Oral 1 tabs, Oral, q6hr, PRN: as needed for pain , 12 tabs, 0 Refill(s) cyclobenzaprine(cyclobenzaprine 10 mg oral tablet) 1 tabs 03/19/2016 03/19/2017 Oral 10 mg 10 mg=1 tabs, Oral, TID, PRN: as needed for spasm, 10 tabs, 0 Refill(s) HYDROcodone-acetaminophen(Edmond 5 mg-325 mg oral tablet) 1 tabs [...] needed for spasm, 15 tabs, 0 Refill(s) HYDROcodone-acetaminophen(Edmond 5 mg-325 mg oral tablet) 1 tabs [...] mL 01/11/2017 01/12/2017 IV 150 mL/hr, IV HYDROcodone-acetaminophen(Edmond 7.5 mg-325 mg oral tablet) 1 tabs [...] L02.01 Cutaneous abscess of face 04/10/2016 Martinez,, tOto Reason R51 Headache 06/16/2016 Martinez,, Otto Final [...] venous thrombosis and embolism 12/07/2017 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 Type Provider Facility Loc./Unit Complaint [id number] 04/18/2017 15:06:00 04/18/2017 15:35:00 DIS Emergency Danial GALLEGOS, [facility].EDW [id number] 03/24/2017 19:09:00 03/24/2017 19:20:00 DIS Emergency Yuan GALLEGOS, [facility] W.JUNI [id number] 01/08/2017 12:36:00 01/08/2017 14:15:00 DIS Emergency Deidra GALLEGOS, [facility] W.EDW [id number] 03/20/2016 21:48:00 03/20/2016 22:40:00 DIS Emergency Ford SIMPSON [facility].ED [id number] 01/20/2015 16:31:00 01/20/2015 18:22:00 DIS Emergency Alpesh GALLEGOS, Chalino [facility] W.NOELLE [id number] 01/03/2015 14:03:00 01/03/2015 16:17:00 DIS Emergency Laura GALLEGOS, Rina [facility].EDW [id number] 06/29/2014 19:23:00 06/29/2014 21:31:00 DIS [facility] [id number] 12/23/2012 14:41:00 12/26/2012 21:30:00 DIS Inpatient Tiffanie GALLEGOS, Edgardo [facility] W.3WH [id number] 08/31/2012 19:04:00 08/31/2012 22:45:00 DIS Emergency Mark GALLEGOS, [facility]ero[facility] W.2WOBED [id number] 12/05/2014 10:30:00 Document Registration [id number] 03/10/2017 07:13:00 03/10/2017 09:02:00 DIS Emergency Martinez [facility] on [facility] ED R shoulder injury [id number] 01/11/2017 11:14:00 01/13/2017 14:07:00 DIS Inpatient Real [facility] F4SW pyelonephritis, fever, weakness [id number] 12/15/2016 12:18:00 12/15/2016 14:28:00 DIS Emergency Martinez [facility] ED back and neck injury [id number] 06/14/2016 22:22:00 06/15/2016 00:44:00 DIS Emergency Martinez [facility] ED sore throat, body aches [id number] 04/07/2016 10:11:00 04/07/2016 10:44:00 DIS Emergency Martinez [facility] ED VILCHIS, jaw pain [id number] 03/22/2016 18:32:00 03/22/2016 19:42:00 DIS Emergency Martinez [facility] ED neck/left shoulder pain [id number] 03/19/2016 18:15:00 03/19/2016 20:15:00 DIS Emergency Martinez [facility] ED neck pain [id number] 12/27/2015 11:48:00 12/27/2015 14:02:00 DIS Emergency Lashay Rosario [facility] on [facility] ED cough, L shoulder pain [id number] 01/14/2015 18:40:00 01/14/2015 21:55:00 DIS Emergency Otto Martinez MD Via [facility] GENER[facility] BODY PAIN [id number] 03/11/2017 05:16:18 Document Registration [id number] 01/14/2017 05:15:59 Document Registration [id number] 01/12/2017 05:17:16 Document Registration [id number] 12/16/2016 05:17:35 Document Registration [id number] 06/15/2016 05:15:48 Document Registration [id number] 04/08/2016 05:16:21 Document Registration [id number] 03/20/2016 05:15:33 Document Registration [id number] 12/28/2015 05:18:09 Document Registration [id number] 01/15/2015 05:16:37 Document Registration [id number] 02/15/2018 14:36:00 02/15/2018 16:20:00 DIS 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 12/19/2017 13:15:00 Document Registration [id number] 08/03/2017 14:50:00 Document Registration
[2018-02-19 00:10] VITALS: BP 144/95
[2018-02-19] MEDS ORDERED: IBUPROFEN 600 MG (MOTRIN) TAB PO PRN (00:30)
[2018-02-19] MEDS ORDERED: ONDANSETRON 4 MG/2 ML (SDV) Z0FRAN IV PRN (00:30)
[2018-02-19] MEDS ORDERED: CATHETER FLUSH 10 ML SYR IV PRN (00:30)
[2018-02-19] MEDS ORDERED: HYDROcodone/APAP 5 MG/325 MG (LORTAB) TAB PO PRN ×2 (00:30→11:30)
[2018-02-19] MEDS: NS IV 1000 ML 1,000 ML IV SCH ×2 (00:40→08:15)
[2018-02-19] MEDS: fentaNYL INJECTION 100 MCG/2 ML AMP IV PRN ×3 (00:58→08:15)
[2018-02-19 04:00] VITALS: BP 119/59
[2018-02-19] MEDS ORDERED: CLINDAMYCIN 900 MG/50 ML IVPB 50 ML IV SCH (06:00)
[2018-02-19 07:33] VITALS: BP 121/77
[2018-02-19] MEDS: CATHETER FLUSH 10 ML SYR IV SCH ×2 (07:33→10:01)
[2018-02-19] MEDS ORDERED: FLU QUADRIvalent (5+ YOA) 2018-2019 (AFLURIA) 0.5 ML IM ONE (08:30)
--- NOTE | 2018-02-19 09:52 | History & Physicial ---
History of Present Illness History of Present Illness Reason for visit/HPI Pain, redness and swelling of left breast Date of Admission Feb 18, 2018 at 23:30 Date Seen by a Provider: Feb 19, 2018 Time Seen by a Provider: 09:50 I consulted on this patient on 02/19/18 09:49 Attending Physician Nati العلي MD Admitting Physician No,Local Physician Consult Allergies and Home Medications Allergies Coded Allergies: No Known Drug Allergies (Unverified , 02/15/18) Patient Home Medication List Home Medication List Reviewed: Yes Past Jfwckbl-Batgdn-Gyhtku Hx Patient Social History Marrital Status: Employed/Student: employed Alcohol Use: Occasionally Uses Alcohol Beverage of Choice: Beer Recreational Drug Use: No Smoking Status: Current Everyday Smoker Type Used: Cigars 2nd Hand Smoke Exposure: No Physical Abuse Screen: Yes Sexual Abuse: No Recent Foreign Travel: No Contact w/other who traveled: No Recent Hopitalizations: No Recent Infectious Disease Expo: No Immunizations Up To Date Tetanus Booster (TDap): Less than 5yrs Pediatric: Yes Date of Pneumonia Vaccine: May 20, 2013 Seasonal Allergies Seasonal Allergies: No Surgeries Yes Section Respiratory Yes Cardiovascular No Neurological No Reproductive System : No Last Menstrual Period: Feb 17, 2018 Sexually Transmitted Disease: No Genitourinary No ("MILD" KIDNEY DAMAGE FROM INFECTION IN BLOOD) Gastrointestinal No Musculoskeletal No Endocrine History of Endocrine Disorders: No HEENT History of HEENT Disorders: No Cancer No Psychosocial History of Psychiatric Problem: No Integumentary History of Skin or Integumenta: No Blood Transfusions History of Blood Disorders: No Family Medical History Family Hx: Hypertension 19 MOTHER Review of Systems Constitutional: fever EENTM: no symptoms reported Respiratory: no symptoms reported Cardiovascular: no symptoms reported Gastrointestinal: no symptoms reported Musculoskeletal: no symptoms reported Skin: see HPI Psychiatric/Neurological: No Symptoms Reported Physical Exam Vital Signs Vital Signs - First Documented 02/18/18 21:59 Temp 97.0 Pulse 96 Resp 12 B/P (MAP) 156/100 (118) Pulse Ox 100 O2 Delivery Room Air Capillary Refill : Less Than 3 SecondsLess Than 3 Seconds Height, Weight, BMI Height: 5'8.00" Weight: 167lbs. 1.0oz. 75.980471nj; 25.4 BMI Method:Stated General Appearance: Mild Distress Neck: Normal Inspection Respiratory: Lungs Clear Cardiovascular: Regular Rate, Rhythm Neurologic/Psychiatric: Alert, Oriented x3 Skin: Warm/Dry Comments Erythema, severe tenderness and induration of the superior aspect of left breast. No axillary lymphadenopathy Assessment/Plan Assessment and Plan Lady with left breast abscess, for incision and drainage Admission Diagnosis Admission Status: Observation Clinical Quality Measures DVT/VTE Risk/Contraindication: Risk Factor Score Per Nursin RFS Level Per Nursing on Admit: 2=Moderate NATI العلي MD Feb 19, 2018 09:52
--- NOTE | 2018-02-19 09:53 | Progress Note-Pre Operative ---
Pre-Operative Progress Note H&P Reviewed The H&P was reviewed, patient examined and no changes noted. Date Seen by Provider: Feb 19, 2018 Time Seen by Provider: 09:52 Date H&P Reviewed: Feb 19, 2018 Time H&P Reviewed: 09:52 Pre-Operative Diagnosis: Left breast abscess NATI العلي MD Feb 19, 2018 09:53
[2018-02-19] MEDS ORDERED: fentaNYL INJECTION 100 MCG/2 ML AMP ONE (10:33)
[2018-02-19] MEDS ORDERED: MIDAZOLAM 2 MG/2 ML (VERSED) VIAL ONE (10:33)
[2018-02-19] MEDS ORDERED: LACTATED RINGERS 1,000 ML IV PRN (10:34)
[2018-02-19] MEDS ORDERED: fentaNYL INJECTION 100 MCG/2 ML AMP IVP ONE (10:45)
[2018-02-19] MEDS ORDERED: MEPERIDINE (DEMEROL) INJ 50 MG/ML IVP ONE (10:45)
[2018-02-19] MEDS ORDERED: morphine INJ 10 MG/ML 1ML (SYR OR VIAL) IVP ONE (10:45)
[2018-02-19] MEDS ORDERED: ONDANSETRON 4 MG/2 ML (SDV) Z0FRAN IVP PRN (10:45)
[2018-02-19] MEDS ORDERED: proPOfol 200 MG/20 ML (DIPRIVAN) VIAL IV ONE (10:56)
[2018-02-19] MEDS ORDERED: LIDOCAINE PF 2% 5 ML (XYLOCAINE) VIAL ONE (10:56)
[2018-02-19] MEDS ORDERED: ONDANSETRON 4 MG/2 ML (SDV) Z0FRAN ONE (10:56)
[2018-02-19] MEDS ORDERED: SEVOFLURANE (ULTANE) 15 ML INHAL SOLN ONE ×3 (10:56→11:21)
[2018-02-19] MEDS ORDERED: MEPERIDINE (DEMEROL) INJ 50 MG/ML ONE (10:58)
[2018-02-19] MEDS ORDERED: KETOROLAC 30 MG/ML VIAL ONE (10:59)
[2018-02-19] MEDS ORDERED: morphine INJ 10 MG/ML 1ML (SYR OR VIAL) ONE (10:59)
--- NOTE | 2018-02-19 11:19 | Operative Report ---
Operative Report Date of Procedure/Surgery Feb 19, 2018 Surgeon (s) NATI العلي MD Information Developer (s): N/A Post-Operative Diagnosis same Procedure Performed incision and drainage of left breast abscess Description of Procedure Anesthesia Type: General Estimated blood loss (mL): minimal Specimen(s) collected/removed pus for culture and sensitivity Description of the Procedure Indication for the procedure: This lady presented with a left breast abscess requiring formal drainage under general anesthetic. Informed consent was obtained after reviewing the procedure in detail. Description of the procedure: She had received intravenous clindamycin earlier during the day. Gen. anesthesia was induced using a laryngeal mask airway. Left breast area was prepared and draped in the usual sterile manner. A 2 cm incision was made at about 1 o'clock position along the superior aspect of the left breast and the abscess cavity drained. All the loculi were broken down and the abscess cavity was irrigated with saline. A Yee drain was left in the cavity to promote postoperative drainage. It was secured using a 2-0 silk suture and a nonadherent dressing applied. She tolerated the procedure well, was extubated in the operating room and taken to the recovery room in a stable condition Findings of the Procedure See op report Allergies and Home Medications Allergies Coded Allergies: No Known Drug Allergies (Unverified , 02/15/18) Patient Home Medication List Home Medication List Reviewed: Yes NATI العلي MD Feb 19, 2018 11:19
[2018-02-19] MEDS ORDERED: ACHD5005 PO ×2 (11:23)
--- NOTE | 2018-02-19 11:25 | Discharge Inst-Simple/Standard ---
Discharge Inst-Standard Discharge Medications New, Converted or Re-Newed RX: RX on Chart Patient Instructions/Follow Up Plan of Care/Instructions/FU: Change dressing with ABD pads as needed. May shower. Follow-up with my nurse on Sunday morning to have the drain removed. Please leave a message at 2500 Activity as Tolerated: Yes Discharge Diet: No Restrictions NATI العلي MD Feb 19, 2018 11:24
[2018-02-19 12:35] VITALS: BP 140/81
[2018-02-19] MEDS ORDERED: RX-HYDROCODONE/APAP 5/325 MG #4 TAB PK PO ONE (14:25)
[2018-02-19] MEDS ORDERED: RX-HYDROCODONE/APAP 5/325 MG #4 TAB PK PO PRN (14:30)
[2018-02-19] MEDS ORDERED: TAMSULOSIN 0.4 MG (FLOMAX) CAP PO ONE (18:11)
[2018-02-19] MEDS ORDERED: NS IV 1000 ML 1,000 ML ONE (18:11)
--- NOTE | 2018-02-20 16:36 | Anesthesia-General Post-Op ---
General Patient Condition Mental Status/LOC: Same as Preop Cardiovascular: Satisfactory Nausea/Vomiting: Absent Respiratory: Satisfactory Pain: Controlled Complications: Absent Post Op Complications Complications None Follow Up Care/Instructions Patient Instructions None needed. Anesthesia/Patient Condition Patient Condition Patient was already discharged to home this morning when post-op rounds were made. No anesthesia complications noted per RN. DEEP PEDRO DO Feb 20, 2018 16:36
== END 2018-02-19 14:30 | disposition home or self-care (01) ==
LOC: EDUNIT# 21:54 → ER 21:55 → 4TH 23:30
PROVIDERS: ADMIT Surgery; ATTEND Surgery
DX: N61.1 Abscess of the breast and nipple (principal); F17.210 Nicotine dependence, cigarettes, uncomplicated
CPT/HCPCS: 36415; 80048; 84703; 85007; 85027; 87070; 87075; 87077; 87081; 87205

== ENCOUNTER 2018-02-20 10:16 | Emergency (ER) | payer SELFPAY ==
[~2018-02-20 10:16] MED LIST: ACHD5005 PO
--- OUTSIDE RECORDS SUMMARY | 2018-02-20 13:55 | XMS REPORT | Continuity of Care Document ---
Author Author [facility] Organization [facility] Address Unknown Phone Unavailable Allergies Active Description Code Type Severity Reaction Onset Reported/Identified Relationship to Patient Clinical Status Yes No Known Drug Intolerances No Known Drug Intolerances Drug Allergy Unknown NONE 01/03/2015 Yes No Known Medication Allergies NKMA N/A N/A 01/14/2015 Yes No Known Allergies No Known Allergies Drug Allergy Unknown N/A 2016 Yes No Known Drug Allergies [id number] Drug Allergy Unknown N/A 02/15/2018 Medications Medication Packaging Start Date Stop Date Route Dosage Sig ondansetron(Zofran) 2 mL 201401/14/2015 IV Push 4 mg 4 mg=2 mL, IV Push, Once ketorolac(Toradol) 1 mL 01/14/2015 01/14/2015 IV Push 30 mg 30 mg=1 mL, IV Push, Once HYDROcodone-acetaminophen(Nunda 7.5 mg-325 mg oral tablet) 1 tabs 01/14/2015 01/14/2015 Oral 1 tabs, Oral, Once HYDROcodone-acetaminophen(Nunda 5 mg-325 mg oral tablet) 1 tabs [...] 03/19/2016 03/19/2016 Oral 1 tabs, Oral, Once HYDROcodone-acetaminophen(Nunda 5 mg-325 mg oral tablet) 1 tabs 03/19/2016 03/19/2017 Oral 1 tabs, Oral, q6hr, PRN: as needed for pain , 12 tabs, 0 Refill(s) cyclobenzaprine(cyclobenzaprine 10 mg oral tablet) 1 tabs 03/19/2016 03/19/2017 Oral 10 mg 10 mg=1 tabs, Oral, TID, PRN: as needed for spasm, 10 tabs, 0 Refill(s) HYDROcodone-acetaminophen(Nunda 5 mg-325 mg oral tablet) 1 tabs [...] needed for spasm, 15 tabs, 0 Refill(s) HYDROcodone-acetaminophen(Nunda 5 mg-325 mg oral tablet) 1 tabs [...] mL 01/11/2017 01/12/2017 IV 150 mL/hr, IV HYDROcodone-acetaminophen(Nunda 7.5 mg-325 mg oral tablet) 1 tabs [...] 03/24/2016 Martinez,, Otto Reason M54.2 Cervicalgia 04/10/2016 Matrinez,, Otto Final F17.210 Nicotine dependence, cigarettes, uncomplicated [...] venous thrombosis and embolism 12/07/2017 TRACEY DUENAS TOLL TICKET CLERK Ot N64.4 MASTODYNIA 12/09/2017 TRACEY DUENAS TOLL TICKET CLERK Ot N64.4 MASTODYNIA Procedures Code Description Performed [...] 5.0-8.0 Protein Pos 1+ NA Negative Specific [place] 1.015 NA 1.003-1.030 UA Collection type Catheter [...] Status Pt. Type Provider Facility Loc./Unit Complaint [id number] 04/18/2017 15:06:00 04/18/2017 15:35:00 DIS Emergency Danial GALLEGOS, [facility].EDW [id number] 03/24/2017 19:09:00 03/24/2017 19:20:00 DIS Emergency Yuan GALLEGOS, [facility] W.JUNI [id number] 01/08/2017 12:36:00 01/08/2017 14:15:00 DIS Emergency Deidra GALLEGOS, [facility] W.EDW [id number] 03/20/2016 21:48:00 03/20/2016 22:40:00 DIS Emergency Ford SIMPSON [facility].ED [id number] 01/20/2015 16:31:00 01/20/2015 18:22:00 DIS Emergency Alpesh GALLEGOS, Chal[facility] W.NOELLE [id number] 01/03/2015 14:03:00 01/03/2015 16:17:00 DIS Emergency Laura GALLEGOS, Rina [facility].EDW [id number] 06/29/2014 19:23:00 06/29/2014 21:31:00 DIS Emergency [facility] [id number] 12/23/2012 14:41:00 12/26/2012 21:30:00 DIS Inpatient Tiffanie GALLEGOS, Edgardo [facility] W.3WH [id number] 08/31/2012 19:04:00 08/31/2012 22:45:00 DIS Emergency Mark GALLEGOS, Figueroa [facility] W.2WOBED [id number] 12/05/2014 10:30:00 Document Registration [id number] 03/10/2017 07:13:00 03/10/2017 09:02:00 DIS Emergency Martinez [facility] on [facility] ED R shoulder injury [id number] 01/11/2017 11:14:00 01/13/2017 14:07:00 DIS Inpatient Real [facility] F4SW pyelonephritis, fever, weakness [id number] 12/15/2016 12:18:00 12/15/2016 14:28:00 DIS Emergency Martinez [facility] ED back and neck injury [id number] 06/14/2016 22:22:00 06/15/2016 00:44:00 DIS Emergency Martinez [facility] ED sore throat, body aches [id number] 04/07/2016 10:11:00 04/07/2016 10:44:00 DIS Emergency Martinez [facility] ED VILCHIS, jaw pain [id number] 03/22/2016 18:32:00 03/22/2016 19:42:00 DIS Emergency Martinez [facility] ED neck/left shoulder pain [id number] 03/19/2016 18:15:00 03/19/2016 20:15:00 DIS Emergency Martinez [facility] ED neck pain [id number] 12/27/2015 11:48:00 12/27/2015 14:02:00 DIS Emergency Lashay Rosario [facility] on Ahs[facility] ED cough, L shoulder pain [id number] 01/14/2015 18:40:00 01/14/2015 21:55:00 DIS Emergency Otto Martinez MD [facility] [id number] 03/11/2017 05:16:18 Document Registration [id number] 01/14/2017 05:15:59 Document Registration [id number] 01/12/2017 05:17:16 Document Registration [id number] 12/16/2016 05:17:35 Document Registration [id number] 06/15/2016 05:15:48 Document Registration [id number] 04/08/2016 05:16:21 Document Registration [id number] 03/20/2016 05:15:33 Document Registration [id number] 12/28/2015 05:18:09 Document Registration [id number] 01/15/2015 05:16:37 Document Registration [id number] 02/15/2018 14:36:00 02/15/2018 16:20:00 DIS Emergency LEE DOMINGUEZ WOODWORKER HELPER Via [facility] ER LUMP ON LEFT BREAST [id number] 11/26/2017 12:09:00 11/26/2017 23:59:59 CLS Outpatient TRACEY DUENAS APRN Via [facility] RAD N64.4 BREAST TENDERNESS [id number] 02/19/2018 09:54:00 Document Registration [id number] 08/31/2017 16:00:00 08/31/2017 23:59:59 CLS Outpatient [facility] [id number] 12/19/2017 13:15:00 Document Registration [id number] 08/03/2017 14:50:00 Document Registration
== END 2018-02-20 10:24 | disposition left against medical advice (07) ==
LOC: EDUNIT# 10:16 → ER 10:17
DX: L03.90 Cellulitis, unspecified (principal)

== ENCOUNTER 2018-04-24 16:40 | Emergency (ER) | payer SELFPAY ==
--- NOTE | 2018-04-24 16:43 | NUR ---
ATTEMPT TO CALL PT TO TRIAGE ET PT IN BATHROOM AT THIS TIME.
--- NOTE | 2018-04-24 16:48 | NUR ---
ATTEMPT TO CALL BACK AGAIN ET NOT IN WAITING ROOM OR IN BATHROOM.
--- OUTSIDE RECORDS SUMMARY | 2018-04-24 20:49 | XMS REPORT | Continuity of Care Document ---
Author Author [facility] Organization [facility] Address Unknown Phone Unavailable Allergies Active Description Code Type Severity Reaction Onset Reported/Identified Relationship to Patient Clinical Status Yes No Known Drug Intolerances No Known Drug Intolerances Drug Allergy Unknown NONE 01/03/2015 Yes No Known Medication Allergies NKMA N/A N/A 01/14/2015 Yes No Known Allergies No Known Allergies Drug Allergy Unknown N/A 2016 Yes No Known Drug Allergies [id number] Drug Allergy Unknown N/A 02/15/2018 Medications Medication Packaging Start Date Stop Date Route Dosage Sig ondansetron(Zofran) 2 mL 201401/14/2015 IV Push 4 mg 4 mg=2 mL, IV Push, Once ketorolac(Toradol) 1 mL 01/14/2015 01/14/2015 IV Push 30 mg 30 mg=1 mL, IV Push, Once HYDROcodone-acetaminophen([place] 7.5 mg-325 mg oral tablet) 1 tabs 01/14/2015 01/14/2015 Oral 1 tabs, Oral, Once HYDROcodone-acetaminophen([place] 5 mg-325 mg oral tablet) 1 tabs [...] 03/19/2016 03/19/2016 Oral 1 tabs, Oral, Once HYDROcodone-acetaminophen([place] 5 mg-325 mg oral tablet) 1 tabs 03/19/2016 03/19/2017 Oral 1 tabs, Oral, q6hr, PRN: as needed for pain , 12 tabs, 0 Refill(s) cyclobenzaprine(cyclobenzaprine 10 mg oral tablet) 1 tabs 03/19/2016 03/19/2017 Oral 10 mg 10 mg=1 tabs, Oral, TID, PRN: as needed for spasm, 10 tabs, 0 Refill(s) HYDROcodone-acetaminophen([place] 5 mg-325 mg oral tablet) 1 tabs [...] needed for spasm, 15 tabs, 0 Refill(s) HYDROcodone-acetaminophen([place] 5 mg-325 mg oral tablet) 1 tabs [...] mL 01/11/2017 01/12/2017 IV 150 mL/hr, IV HYDROcodone-acetaminophen([place] 7.5 mg-325 mg oral tablet) 1 tabs [...] to Escherichia coli [E. coli] 03/12/2017 Angel,, tOto Final F17.210 Nicotine dependence, cigarettes, uncomplicated 03/12/2017 Angel,Otto Reason M25.511 Pain in right shoulder 03/12/2017 Martinez Howard Final W00.0XXA Fall on same level due to ice and snow, initial encounter 03/12/2017 Martinez Howard Final W22.8XXA Striking against or struck by other objects, initial encounter 03/12/2017 Martinez Howard Final Z86.718 Personal history of other venous thrombosis and embolism 12/07/2017 TRACEY DUENAS AGENCY SERVICE COORDINATOR Ot N64.4 MASTODYNIA 12/09/2017 TRACEY DUENAS AGENCY SERVICE COORDINATOR Ot N64.4 MASTODYNIA 02/19/2018 ZOHRA GALLEGOS, NATI Bergman Ot F17.210 NICOTINE DEPENDENCE, CIGARETTES, UNCOMPL 02/19/2018 ZOHRA GALLEGOS, NATI Bergman Ot N61.1 ABSCESS OF THE BREAST AND NIPPLE 02/20/2018 ALBERTOLEE Mosley Ot F17.210 NICOTINE DEPENDENCE, CIGARETTES, UNCOMPL 02/20/2018 ALBERTOLEE MosleyP Ot J42 UNSPECIFIED CHRONIC BRONCHITIS 02/20/2018 LEE DOMINGUEZ Ot N63.20 UNSPECIFIED LUMP IN THE LEFT BREAST, UNS 02/22/2018 MARA GALLEGOS, SCOOTER T Ot L03.90 CELLULITIS, UNSPECIFIED 02/22/2018 ZOHRA GALLEGOS, NATI Bergman Ot F17.210 NICOTINE DEPENDENCE, CIGARETTES, UNCOMPL 02/22/2018 ZOHRA GALLEGOS, NATI Bergman Ot N61.1 ABSCESS OF THE BREAST AND NIPPLE 02/26/2018 MARA GALLEGOS, SCOOTER T Ot L03.90 CELLULITIS, UNSPECIFIED 02/27/2018 ZOHRA GALLEGOS, NATI Bergman Ot F17.210 NICOTINE DEPENDENCE, CIGARETTES, UNCOMPL 02/27/2018 ZOHRA GALLEGOS, NATI Bergman Ot N61.1 ABSCESS OF THE BREAST AND NIPPLE 02/27/2018 NATI العلي MD Ot F17.210 NICOTINE DEPENDENCE, CIGARETTES, UNCOMPL 02/27/2018 NATI العلي MD Ot N61.1 ABSCESS OF THE BREAST AND NIPPLE 02/27/2018 NATI العلي MD Ot F17.210 NICOTINE DEPENDENCE, CIGARETTES, UNCOMPL 02/27/2018 ZOHRA GALLEGOS, NATI Bergman Ot N61.1 ABSCESS OF THE BREAST AND NIPPLE Procedures Code Description Performed By Performed On [...] 5.0-8.0 Protein Pos 1+ NA Negative Specific [place] 1.015 NA 1.003-1.030 UA Collection type Catheter [...] 12/19/17 14:29 CULTURE, GENITAL SEE NOTE NRG Complete blood count (CBC) with automated white blood cell (WBC) differential - 02/18/18 22:20 Blood leukocytes automated count (number/volume) 15.7 10*3/uL 4.3-11.0 Blood erythrocytes automated count (number/volume) 4.60 10*6/uL 4.35-5.85 Venous blood hemoglobin measurement (mass/volume) 14.4 g/dL 11.5-16.0 Blood hematocrit (volume fraction) 42 % 35-52 Automated erythrocyte mean corpuscular volume 91 [foz_us] 80-99 Automated erythrocyte mean corpuscular hemoglobin (mass per erythrocyte) 31 pg 25-34 Automated erythrocyte mean corpuscular hemoglobin concentration measurement ( mass/volume) 35 g/dL 32-36 Automated erythrocyte distribution width ratio 12.7 % 10.0-14.5 Automated blood platelet count (count/volume) 343 10*3/uL 130-400 Automated blood platelet mean volume measurement 9.4 [foz_us] 7.4-10.4 Automated blood neutrophils/100 leukocytes 72 % 42-75 Automated blood lymphocytes/100 leukocytes 19 % 12-44 Blood monocytes/100 leukocytes 7 % 0-12 Automated blood eosinophils/100 leukocytes 2 % 0-10 Automated blood basophils/100 leukocytes 0 % 0-10 Blood neutrophils automated count (number/volume) 11.3 10*3 1.8-7.8 Blood lymphocytes automated count (number/volume) 2.9 10*3 1.0-4.0 Blood monocytes automated count (number/volume) 1.1 10*3 0.0-1.0 Automated eosinophil count 0.3 10*3/uL 0.0-0.3 Automated blood basophil count (count/volume) 0.1 10*3/uL 0.0-0.1 Serum or plasma choriogonadotropin ( test) detection - 02/18/18 22:20 Serum or plasma choriogonadotropin ( test) detection NEGATIVE NEGATIVE Whole blood basic metabolic panel - 02/18/18 22:20 Serum or plasma sodium measurement (moles/volume) 137 mmol/L 135-145 Serum or plasma potassium measurement (moles/volume) 4.3 mmol/L 3.6-5.0 Serum or plasma chloride measurement (moles/volume) 105 mmol/L 98-107 Carbon dioxide 19 mmol/L 21-32 Serum or plasma anion gap determination (moles/volume) 13 mmol/L 5-14 Serum or plasma urea nitrogen measurement (mass/volume) 15 mg/dL 7-18 Serum or plasma creatinine measurement (mass/volume) 0.79 mg/dL 0.60-1.30 Serum or plasma urea nitrogen/creatinine mass ratio 19 NRG Serum or plasma creatinine measurement with calculation of estimated glomerular filtration rate > NRG Serum or plasma glucose measurement (mass/volume) 81 mg/dL 70-105 Serum or plasma calcium measurement (mass/volume) 9.7 mg/dL 8.5-10.1 Blood manual differential performed detection - 02/18/18 22:20 Blood monocytes/100 leukocytes 7 % NRG Manual blood segmented neutrophils/100 leukocytes 60 % NRG Blood band neutrophils/100 leukocytes 1 % NRG Manual blood lymphocytes/100 leukocytes 28 % NRG Manual eosinophils/100 leukocytes in nose 3 % NRG Manual blood basophils/100 leukocytes 1 % NRG Blood erythrocyte morphology finding identification NORMAL NRG Gram stain microscopy - 02/18/18 22:58 Gram stain microscopy Many Gram postive cocci NR Bacterial body fluid culture - 02/18/18 22:58 FREE TEXT EXTERNAL ID REPORTED 02/20/18 12:05 NR QUANTITY OF GROWTH . [facility] FREE TEXT ENTRY 2 SENSITIVITY REPORTED 02/21/18 11:05 NR Bacterial body fluid culture [facility] - 02/18/18 22:58 Oxacillin susceptibility test by minimum inhibitory concentration R NRG Clindamycin susceptibility test by minimum inhibitory concentration > NRG Erythromycin susceptibility test by minimum inhibitory concentration > NRG Trimethoprim/sulfamethoxazole susceptibility test by minimum inhibitoryconcentration R NRG Vancomycin susceptibility test by minimum inhibitory concentration 1 NRG Levofloxacin susceptibility test by minimum inhibitory concentration > NRG Rifampin susceptibility test by minimum inhibitory concentration <= NRG Cefazolin susceptibility test by minimum inhibitory concentration > NR Linezolid susceptibility test by minimum inhibitory concentration 2 NRG Penicillin G susceptibility test by minimum inhibitory concentration > NRG Moxifloxacin susceptibility test by minimum inhibitory concentration S NRG Minocycline susc BHARAT <= NRG Methicillin resistant Staphylococcus aureus (MRSA) screening culture - 09:54 Methicillin resistant Staphylococcus aureus (MRSA) screening culture NEG NRG Bacteria identification in isolate by anaerobe culture - 02/19/18 11:10 Bacteria identification in isolate by anaerobe culture NOANA NRG Gram stain microscopy - 02/19/18 11:10 Gram stain microscopy Many Gram positive cocci NRG Bacteria identification in wound by culture - 02/19/18 11:10 Bacteria identification in wound by culture [id number] NRG FREE TEXT EXTERNAL ID REPORTED 02/20/18 12:05 NRG QUANTITY OF GROWTH FEW NRG FREE TEXT ENTRY 2 REFER TO PREV CULTURE FOR SENSITIVITY NRG Encounters ACCT No. Visit Date/Time Discharge Status Pt. Type Provider Facility Loc./Unit Complaint [id number] 04/18/2017 15:06:00 04/18/2017 15:35:00 DIS Emergency [facility] [id number] 03/24/2017 19:09:00 03/24/2017 19:20:00 DIS Emergency Yuan GALLEGOS, [facility] W.JUNI [id number] 01/08/2017 12:36:00 01/08/2017 14:15:00 DIS Emergency Deidra GALLEGOS, [facility].EDW [id number] 03/20/2016 21:48:00 03/20/2016 22:40:00 DIS [id number] 01/20/2015 16:31:00 01/20/2015 18:22:00 DIS Emergency Alpesh GALLEGOS, Chalino [facility] W.NOELLE [id number] 01/03/2015 14:03:00 01/03/2015 16:17:00 DIS Emergency [id number] 06/29/2014 19:23:00 06/29/2014 21:31:00 DIS [facility] [id number] 12/23/2012 14:41:00 12/26/2012 21:30:00 DIS Inpatient Tiffanie GALLEGOS, Edgardo Madalyn [facility] W.3WH [id number] 08/31/2012 19:04:00 08/31/2012 22:45:00 DIS Emergency Mark GALLEGOS, iFgueroa Slater [facility] W.2WOBED [id number] 12/05/2014 10:30:00 Document Registration [id number] 03/10/2017 07:13:00 03/10/2017 09:02:00 DIS Emergency Martinez Howard [facility] on [facility] ED R shoulder injury [id number] 01/11/2017 11:14:00 01/13/2017 14:07:00 DIS Inpatient Berhaneundelizabeth Paul [facility] on [facility] F4SW pyelonephritis, fever, weakness [id number] 12/15/2016 12:18:00 12/15/2016 14:28:00 DIS Emergency Martinez Howard [facility] on [facility] ED back and neck injury [id number] 06/14/2016 22:22:00 06/15/2016 00:44:00 DIS Emergency Martinez Howard [facility] on [facility] ED sore throat, body aches [id number] 04/07/2016 10:11:00 04/07/2016 10:44:00 DIS Emergency Martinez Howard [facility] on [facility] ED VILCHIS, jaw pain [id number] 03/22/2016 18:32:00 03/22/2016 19:42:00 DIS Emergency Martinez Howard [facility] on [facility] ED neck/left shoulder pain [id number] 03/19/2016 18:15:00 03/19/2016 20:15:00 DIS Emergency Martinez Howard [facility] on [facility] ED neck pain [id number] 12/27/2015 11:48:00 12/27/2015 14:02:00 DIS Emergency Lashay Rosario [facility] on [facility] ED cough, L shoulder pain [id number] 01/14/2015 18:40:00 01/14/2015 21:55:00 DIS Emergency Otto Martinez MD Via [facility] ED GENERAL BODY PAIN [id number] 03/11/2017 05:16:18 Document Registration [id number] 01/14/2017 05:15:59 Document Registration [id number] 01/12/2017 05:17:16 Document Registration [id number] 12/16/2016 05:17:35 Document Registration [id number] 06/15/2016 05:15:48 Document Registration [id number] 04/08/2016 05:16:21 Document Registration [id number] 03/20/2016 05:15:33 Document Registration [id number] 12/28/2015 05:18:09 Document Registration [id number] 01/15/2015 05:16:37 Document Registration [id number] 04/24/2018 17:31:00 04/24/2018 17:34:00 DIS Emergency SCOOTER TERRY MD Via [facility] ER DETOX [id number] 04/24/2018 16:41:00 04/24/2018 16:48:00 DIS Emergency SCOOTER TERRY MD Via [facility] ER DETOX [id number] 02/20/2018 10:17:00 02/20/2018 10:24:00 DIS Outpatient SCOOTER TERRY MD Via [facility] ER CELLULITIS [id number] 02/18/2018 23:30:00 02/19/2018 14:30:00 DIS Outpatient NATI العلي MD Via [facility] L BREAST CELLULITIS WITH ABSCESS [id number] 02/15/2018 14:36:00 02/15/2018 16:20:00 DIS Outpatient LEE DOMINGUEZ DAYCARE MANAGER Via [facility] ER LUMP ON LEFT BREAST [id number] 11/26/2017 12:09:00 11/26/2017 23:59:59 CLS Outpatient TRACEY DUENAS APRN Via [facility] RAD N64.4 BREAST TENDERNESS [id number] 02/18/2018 09:50:00 02/18/2018 23:59:59 CLS Outpatient [facility] [id number] 12/19/2017 13:15:00 Document Registration [id number] 08/03/2017 14:50:00 Document Registration
== END 2018-04-24 16:48 | disposition left against medical advice (07) ==
LOC: EDUNIT# 16:40 → ER 16:41
DX: F10.10 Alcohol abuse, uncomplicated (principal)

== ENCOUNTER 2018-04-24 17:30 | Emergency (ER) | payer SELFPAY ==
--- NOTE | 2018-04-24 17:32 | NUR ---
MIXER RUNNER STATES SHE IS NOT GOING OUT AND PUTTING ON HER BRACELET DUE TO THE PT CALLING HER A "BITCH" AND "HOE".
--- NOTE | 2018-04-24 17:34 | NUR ---
ATTEMPT TO CALL PT BACK TO TRIAGE PT STARTS TO COME THEN SAYS SHE NEEDS TO MAKE A PHONE CALL. REMINDED HER THIS IS THE 2ND TIME SHE HAS BEEN HERE AND NEEDS TO BE TRIAGED BEFORE MAKING A PHONE CALL. PT STATES SHE WANTS TO DEAL WITH SOMEONE ELSE ET DOES NOT LIKE MY ATTITUDE. REMINDED HER THAT SHE ALREADY CUSSED OUT THE FABRICATION LEAD AND IF SHE WANTS TO BE SEEN SHE NEEDS TO BE TRIAGED. PT LEFT THE ER FOR THE 2ND TIME.
--- NOTE | 2018-04-24 17:35 | NUR ---
JULES AQUINO NOTIFIED OF SITUATION.
--- OUTSIDE RECORDS SUMMARY | 2018-04-24 20:52 | XMS REPORT | Continuity of Care Document ---
Author Author [facility] Organization [facility] Address Unknown Phone Unavailable Allergies Active Description Code Type Severity Reaction Onset Reported/Identified Relationship to Patient Clinical Status Yes No Known Drug Intolerances No Known Drug Intolerances Drug Allergy Unknown NONE 01/03/2015 Yes No Known Medication Allergies NKMA N/A N/A 01/14/2015 Yes No Known Allergies No Known Allergies Drug Allergy Unknown N/A 2016 Yes No Known Drug Allergies [id number] Drug Allergy Unknown N/A 02/15/2018 Medications Medication Packaging Start Date Stop Date Route Dosage Sig ondansetron(Zofran) 2 mL 201401/14/2015 IV Push 4 mg 4 mg=2 mL, IV Push, Once ketorolac(Toradol) 1 mL 01/14/2015 01/14/2015 IV Push 30 mg 30 mg=1 mL, IV Push, Once HYDROcodone-acetaminophen([place] 7.5 mg-325 mg oral tablet) 1 tabs 01/14/2015 01/14/2015 Oral 1 tabs, Oral, Once HYDROcodone-acetaminophen([place] 5 mg-325 mg oral tablet) 1 tabs [...] 03/19/2016 03/19/2016 Oral 1 tabs, Oral, Once HYDROcodone-acetaminophen([place] 5 mg-325 mg oral tablet) 1 tabs 03/19/2016 03/19/2017 Oral 1 tabs, Oral, q6hr, PRN: as needed for pain , 12 tabs, 0 Refill(s) cyclobenzaprine(cyclobenzaprine 10 mg oral tablet) 1 tabs 03/19/2016 03/19/2017 Oral 10 mg 10 mg=1 tabs, Oral, TID, PRN: as needed for spasm, 10 tabs, 0 Refill(s) HYDROcodone-acetaminophen([place] 5 mg-325 mg oral tablet) 1 tabs [...] needed for spasm, 15 tabs, 0 Refill(s) HYDROcodone-acetaminophen([place] 5 mg-325 mg oral tablet) 1 tabs [...] mL 01/11/2017 01/12/2017 IV 150 mL/hr, IV HYDROcodone-acetaminophen([place] 7.5 mg-325 mg oral tablet) 1 tabs [...] or strenuous movements or postures, init 03/21/2016 Maritnez Howard Final Y92.[address] in unspecified [...] venous thrombosis and embolism 12/07/2017 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 [facility] FREE TEXT ENTRY 2 SENSITIVITY REPORTED 02/21/18 11:05 NR Bacterial body fluid culture SEE REPORT [facility] Sensitivity Panel - 02/18/18 22:58 Oxacillin susceptibility [...] 11:10 Bacteria identification in wound by culture [id number] NRG FREE TEXT EXTERNAL ID REPORTED 02/20/18 12:05 NRG QUANTITY OF GROWTH FEW NRG FREE TEXT ENTRY 2 REFER TO PREV CULTURE FOR SENSITIVITY NRG Encounters ACCT No. Visit Date/Time Discharge Status Pt. Type Provider Facility Loc./Unit Complaint [id number] 04/18/2017 15:06:00 04/18/2017 15:35:00 DIS Emergency Danial [facility] [id number] 03/24/2017 19:09:00 03/24/2017 19:20:00 DIS Emergency Yuan GALLEGOS, [facility] W.JUNI [id number] 01/08/2017 12:36:00 01/08/2017 14:15:00 DIS Emergency Deidra GALLEGOS, [facility].EDW [id number] 03/20/2016 21:48:00 03/20/2016 22:40:00 DIS [id number] 01/20/2015 16:31:00 01/20/2015 18:22:00 DIS Emergency Alpesh GALLEGOS, Chalino [facility] W.NOELLE [id number] 01/03/2015 14:03:00 01/03/2015 16:17:00 DIS Emergency [facility] [id number] 06/29/2014 19:23:00 06/29/2014 21:31:00 DIS Emergency [facility] [id number] 12/23/2012 14:41:00 12/26/2012 21:30:00 DIS Inpatient Tiffanie GALLEGOS, Edgardo Madalyn [facility] W.3WH [id number] 08/31/2012 19:04:00 08/31/2012 22:45:00 DIS Emergency Mark GALLEGOS, Figueroa Slater [facility] W.2WOBED [id number] 12/05/2014 10:30:00 Document Registration [id number] 03/10/2017 07:13:00 03/10/2017 09:02:00 DIS Emergency Martinez Howard [facility] on [facility] ED R shoulder injury [id number] 01/11/2017 11:14:00 01/13/2017 14:07:00 DIS Inpatient Berhaneundelizabeth Paul [facility] on [facility] F4SW pyelonephritis, fever, weakness [id number] 12/15/2016 12:18:00 12/15/2016 14:28:00 DIS Emergency Martinez Howard [facility] on [facility] ED back and neck injury [id number] 06/14/2016 22:22:00 06/15/2016 00:44:00 DIS Emergency Martinez Howard [facility] on [facility] ED sore throat, body aches [id number] 04/07/2016 10:11:00 04/07/2016 10:44:00 DIS Emergency Martinez Howard [facility] on [facility] ED VILCHIS, jaw pain [id number] 03/22/2016 18:32:00 03/22/2016 19:42:00 DIS Emergency Martinez Howard [facility] on [facility] ED neck/left shoulder pain [id number] 03/19/2016 18:15:00 03/19/2016 20:15:00 DIS Emergency Martinez Howard [facility] on [facility] ED neck pain [id number] 12/27/2015 11:48:00 12/27/2015 14:02:00 DIS Emergency Lashay Rosario [facility] on [facility] ED cough, L shoulder pain [id number] 01/14/2015 18:40:00 01/14/2015 21:55:00 DIS Emergency Otto Martinez MD Via [facility] ED GENERAL BODY PAIN [id number] 03/11/2017 05:16:18 Document Registration [id number] 01/14/2017 05:15:59 Document Registration [id number] 01/12/2017 05:17:16 Document Registration [id number] 12/16/2016 05:17:35 Document Registration [id number] 06/15/2016 05:15:48 Document Registration [id number] 04/08/2016 05:16:21 Document Registration [id number] 03/20/2016 05:15:33 Document Registration [id number] 12/28/2015 05:18:09 Document Registration [id number] 01/15/2015 05:16:37 Document Registration [id number] 04/24/2018 17:31:00 04/24/2018 17:34:00 DIS Emergency SCOOTER TERRY MD Via [facility] ER DETOX [id number] 04/24/2018 16:41:00 04/24/2018 16:48:00 DIS Emergency SCOOTER TERRY MD Via [facility] ER DETOX [id number] 02/20/2018 10:17:00 02/20/2018 10:24:00 DIS Outpatient SCOOTER TERRY MD Via [facility] ER CELLULITIS [id number] 02/18/2018 23:30:00 02/19/2018 14:30:00 DIS Outpatient NATI العلي MD Via [facility] L BREAST CELLULITIS WITH ABSCESS [id number] 02/15/2018 14:36:00 02/15/2018 16:20:00 DIS Outpatient LEE DOMINGUEZ [employer] Via [facility] ER LUMP ON LEFT BREAST [id number] 11/26/2017 12:09:00 11/26/2017 23:59:59 CLS Outpatient TRACEY DUENAS APRN Via [facility] RAD N64.4 BREAST TENDERNESS [id number] 02/18/2018 09:50:00 02/18/2018 23:59:59 CLS Outpatient ELSA SYED LAC [facility] [id number] 12/19/2017 13:15:00 Document Registration [id number] 08/03/2017 14:50:00 Document Registration
== END 2018-04-24 17:34 | disposition left against medical advice (07) ==
LOC: EDUNIT# 17:30 → ER 17:31
DX: F10.10 Alcohol abuse, uncomplicated (principal)